=== PATIENT | female | born 1975 | race Two or more races ===

== ENCOUNTER 2020-11-26 17:02 | Emergency (ER) | payer MEDICAID, SELFPAY ==
--- NOTE | ~2020-11-26 | XR_ITS ---
EXAMINATION: XR CHEST CLINICAL INFORMATION: Wheezing COMPARISON: None TECHNIQUE: 2 views of the chest were obtained. FINDINGS: Cardiac silhouette is normal in size. Lungs are well aerated. There is no lobar consolidation. No pleural effusion or pneumothorax. No acute osseous abnormality. XR/XR chest 2V IMPRESSION: No acute pulmonary pathology.
[2020-11-26 17:16] VITALS: BP 149/93; PULSE 103; RESP 22; TEMP 37.1; O2SAT 95; BMI 44.2
--- NOTE | 2020-11-26 18:34 | ED.ASTHMA ---
HPI - Asthma General Chief Complaint: Asthma Stated Complaint: COUGH X 3 DAYS,-FEVER Time Seen by Provider: 11/26/20 18:06 Source: patient Mode of arrival: ambulatory Limitations: no limitations History of Present Illness HPI Narrative: Patient is a 45-year-old female the past medical history of asthma who presents with 3 days of shortness of breath. She states she has tried her albuterol inhaler several times with no relief. She states she then tried her sister's albuterol nebulizer machine twice today with no relief. She states she has wheezing, cough and no her head hurts. She denies any fevers nausea vomiting or chest pain. She denies seasonal allergies and does not take an allergy pill daily Related Data Previous Rx's Medication Instructions Recorded ipratropium-albuterol 3 ml INHALATION Q6-8H PRN #15 ml 11/26/20 prednisone 50 mg PO DAILY #4 tab 11/26/20 Allergies Allergy/AdvReac Type Severity Reaction Status Date / Time No Known Allergies Allergy Unverified 03/27/20 16:54 Review of Systems Review of Systems: Yes all other systems are reviewed and are negative [facility] Social History Social History Smoking Status: Current every day smoker Smoked in Last 30 Days: Yes Use of substances other than those prescribed or required for medical reasons: No Advance Directives: No Advance Directives Information Provided: Yes Patient : No Physical Exam Vital Signs: Vital Signs: Last Vital Signs Temp 98.9 F 11/26/20 20:42 Pulse 133 H 11/26/20 20:42 Resp 16 11/26/20 20:42 BP 146/68 H 11/26/20 20:42 Pulse Ox 97 11/26/20 20:42 Body Mass Index 44.2 Const: General: cooperative, healthy appearing, comfortable, no acute distress and well developed Orientation/consciousness: patient oriented x3 Limitations: no limitations HENMT: Head: Yes normal to inspection Eyes: General: appearance normal, both eyes and all related structures Neck: Neck: Yes normal visual inspection and Yes full ROM Resp: Effort & Inspection: normal respiratory effort and able to speak in complete sentences Auscultation: wheezes expiratory wheezes and throughout Cardio: Rate: tachycardic Rhythm: regular rhythm Heart sounds: normal S1 and S2 GI: Inspection: Yes normal to inspection Palpation (GI): Soft to palpation and nontender Skin: General skin exam: no rashes or lesions noted Neuro: General: patient oriented x3 Extrem: General: Yes normal to inspection Psych: Appearance: grossly normal and well kempt Speech and movement: Normal speech and movement present Affect: normal affect Attitude: cooperative Thought process: Normal thought process present Thought content: Suicidality present, no homicidality, no hallucinations and Depressive thoughts present Insight: Good insight present (Psych) Judgement: Good judgement present (Psych) Course Course Course Narrative: Patient is a 45-year-old female with a past medical history of asthma who presents with shortness of breath cough headache and wheezing x3 days, no relief after using albuterol inhaler and albuterol nebulizer. Vital signs revealed patient is hypertensive at 149/93, slightly tachycardic at 103, respirations are 22, O2 sat is 95% on room air and her temp is 98.8 degrees F. Patient is very well-appearing, physical exam reveals expiratory wheezes throughout. Will give DuoNeb, p.o. prednisone, get chest x-ray to rule out pneumonia and reassess Reevaluation(s) Reevaluation #1: Chest x-ray showed no acute pathology. Patient did receive DuoNeb/an extra albuterol nebulized. Patient states she is feeling better but ? febrile and is still tachycardic. will get vitals. Time: 20:29 Reevaluation #2: Raoul, the respiratory therapist agrees, patient is stable and can go home, patient heart rate likely increased due to prednisone we gave. Patient is well-appearing, afebrile, breathing easily, less wheezing upon auscultation. Will discharge with 4 days of prednisone and more albuterol for her nebulizer machine. Time: 20:53 MDM - Asthma Lab Data Attestation: I reviewed the patient's lab results. Labs: Lab Results 11/26/20 Range/Units 19:22 COVID-19 (ELAINE) Negative (Negative) COVID-19 Clin Com See Note Imaging Data Chest x-ray: Attestation: I personally reviewed and interpreted this imaging study as follows: My impression: No acute pathology Radiologist's impression: [address] [id number] ReportSigned Patient: Kyleigh Madrid#: [id number]: 1975Acct:[id number]/Sex: 45 / FADM Date: 11/26/20Loc: EDAttending Dr: Ordering Physician: Gail Gleason PA-C Date of Service: 11/26/20 Procedure(s): XR chest 2V Accession Number(s): [id number] cc: Gail Gleason PA-C~ EXAMINATION: XR CHEST CLINICAL INFORMATION: Wheezing COMPARISON: None TECHNIQUE: 2 views of the chest were obtained. FINDINGS: Cardiac silhouette is normal in size. Lungs are well aerated. There is no lobar consolidation. No pleural effusion or pneumothorax. No acute osseous abnormality. XR/XR chest 2V IMPRESSION: No acute pulmonary pathology. Dictated By:REFUGIO WADE MDSigned By:<Electronically signed by REFUGIO WADE MD in OV>11/26/201952 DD/ 24TD/TT: Jail Manager: PD Discharge Plan Discharge Clinical Impression: Asthma with acute exacerbation Qualifiers: Asthma severity: mild Asthma persistence: unspecified Qualified Code(s): J45.901 - Unspecified asthma with (acute) exacerbation Patient Disposition: Home, Self-Care Instructions: Asthma (ED) Additional Instructions: If you develop shortness of breath, chest pain, please call 911 or return to the emergency department. I have sent prescriptions for a steroid every day for the next 4 days and a DuoNeb which you can put in the nebulizer machine when you are wheezing, if to every 6-8 hours as needed. Please be sure to follow-up with your primary care doctor is you may need an adjustment in your asthma medications. Prescriptions: New prednisone 50 mg tablet 50 mg PO DAILY Qty: 4 RF: 0 ipratropium-albuterol 0.5 mg-3 mg(2.5 mg base)/3 mL solution for nebulization 3 ml inhalation Q6-8H PRN (Reason: shortness of breath or wheezing) Qty: 15 RF: 0
[2020-11-26] MEDS: Albuterol/Iprat 2.5/0.5MG 3 ML AMPUL.NEB INHALE (18:37)
[2020-11-26 18:38] VITALS: PULSE 109; O2SAT 93
[2020-11-26] MEDS: Albuterol Sulfate (0.083%) 2.5 MG/3 ML VIAL.NEB 5 MG INHALE (18:57)
[2020-11-26] MEDS: predniSONE 10 MG TABLET 50 MG PO (19:26)
[2020-11-26 19:44] LABS: COVID-19 Test Negative (Negative)
[2020-11-26 20:42] VITALS: BP 146/68; PULSE 133; RESP 16; TEMP 37.2; O2SAT 97
--- NOTE | 2020-11-26 20:59 | PC.NURSE ---
PT SINUS TACH ON MONITOR SINCE ADMIN OF NEB TX. HR LOWERED TO 120S AFTER PT INSTRUCTED TO AVOID TALKING ON THE PHONE IN AN AGITATED WAY. EDUCATED ON TACHYCARDIA STEROID S/E.
== END 2020-11-26 21:32 | disposition home or self-care (01) ==
PROVIDERS: Physician Assistant; Emergency Provider Emergency Medicine
DX: J45.901 Unspecified asthma with (acute) exacerbation (principal); R50.9 Fever, unspecified; R05 Cough; F17.200 Nicotine dependence, unspecified, uncomplicated; Z20.822 Contact with and (suspected) exposure to COVID-19; Z71.6 Tobacco abuse counseling; Z79.899 Other long term (current) drug therapy
CPT/HCPCS: 36415; 71046; 87635; 94640; 94644; 99284

== ENCOUNTER 2021-02-25 10:39 | Observation (INO) | payer MEDICAID, SELFPAY ==
[2021-02-25] VITALS (9 sets, daily range): BP systolic 131–168; BP diastolic 71–89; PULSE 94–116; RESP 16–22; TEMP 36.6–36.8; O2SAT 92–99; BMI 38.9
--- NOTE | ~2021-02-25 | XR_ITS ---
EXAMINATION: XR CHEST CLINICAL INFORMATION: Cough. COMPARISON: Chest radiograph dated 11/26/2020. TECHNIQUE: Frontal view of the chest was obtained. FINDINGS: The lungs are clear. The cardiomediastinal silhouette is normal in size. There is no pleural effusion or pneumothorax. No acute osseous abnormality. XR/XR chest 1V IMPRESSION: No acute cardiopulmonary findings.
--- NOTE | 2021-02-25 11:12 | ED_ITS ---
HPI - Asthma General Chief Complaint: Asthma Stated Complaint: asthma Time Seen by Provider: 02/25/21 11:12 Source: patient Mode of arrival: ambulatory Limitations: no limitations History of Present Illness MD complaint: asthma attack , shortness of breath and wheezing Onset (ago): day(s) (3) Severity: moderate and similar to prior Context: other (painted in her house) Associated symptoms: dry cough Asthma History: childhood onset Treatments Prior to Arrival: other (went to [facility] given oral prednisone sent to the ED for updraft patient has INH only at home) Related Data Previous Rx's Medication Instructions Recorded albuterol sulfate 90 mcg/actuation 2 puff INHALATION Q4-6H PRN #8.5 g 11/26/20 aerosol inhaler ipratropium 0.5 mg-albuterol 3 mg 3 ml INHALATION Q6-8H PRN #15 ml 11/26/20 (2.5 mg base)/3 mL nebulization soln prednisone 50 mg tablet 50 mg PO DAILY #4 tab 11/26/20 Allergies Allergy/AdvReac Type Severity Reaction Status Date / Time No Known Allergies Allergy Unverified 03/27/20 16:54 Review of Systems Review of Systems: Constitutional : No Fever, No Chills ENT/Mouth : No Hoarseness, No sore throat, No Rhinorrhea Eyes: No Redness, No Discharge, No Vision Changes Cardiovascular : No Chest Pain, positive SOB, positive Dyspnea on Exertion, No Edema Respiratory : positive Cough, No Sputum, positive Wheezing, Gastrointestinal : No Nausea, No Vomiting, No Diarrhea, No abdominal Pain Genitourinary : No Dysuria, No Hematuria Musculoskeletal : No joint pain, No Myalgias Skin : No rash Neuro : No Weakness, No Numbness, No Headache Psych : No anxiety, depression Heme/Lymph: No Bruising, No Bleeding Endocrine : No Polyuria, No Polydipsia All other systems reviewed and are negative [facility] Past Medical History Attestation statement: The following information was validated with the patient. Medical History Asthma Surgical History H/O shoulder surgery Social History Social History Alcohol intake: current Alcohol intake frequency: holidays/special occasions only Patient Tobacco Use Status: Current everyday Tobacco user Use of substances other than those prescribed or required for medical reasons: No Advance Directives: Yes Advance Directives Information Provided: Yes Advance Directives on File: No Patient : No Physical Exam Vital Signs: Vital Signs: Last Vital Signs Temp 98.3 F 02/25/21 10:57 Pulse 116 H 02/25/21 13:25 Resp 20 02/25/21 13:02 BP 167/84 H 02/25/21 13:02 Pulse Ox 94 02/25/21 13:02 Body Mass Index 38.9 Appearance: Alert. Oriented X3. No acute distress. Eyes: Pupils equal, round and reactive to light. ENT: Pharynx normal. Neck: Normal inspection. Neck supple. CVS: Normal heart rate and rhythm. Pulses normal. Respiratory: No respiratory distress. Breath sounds diffuse end exp wheezes coarse in nature Abdomen: Soft and non-tender. Skin: Skin warm and dry. Normal skin color. Normal skin turgor. Extremities: No lower extremity edema. No calf ttp Neuro: Oriented X 3. No motor deficit. No sensory deficit. Course Course Course Narrative: repeat neb ordered, still tachy and O2 sat 92% on RA, will repeat 5mg neb, IV magnesium, I cannot see a COVID swab - will order one now, states she took 60mg prednisone [employer] so I am holding off IV steroids at this time no sig improvement 92% on RA has no neb at home, RR 28 will admit for asthma MDM - Asthma MDM Narrative Medical decision making narrative: 45 yo female with hx of asthma, had negative COVID given oral prednisone [employer] by [facility] sent over for nebulization, she is coarse at this time as well - CXR ordered. dispo per results and improvement Lab Data Result diagrams: 02/25/21 13:16 02/25/21 13:16 Labs: Lab Results 02/25/21 02/25/21 02/25/21 Range/Units 13:16 13:16 13:16 WBC 7.8 (4.8-10.8) X10*3/uL RBC 3.87 L (4.20-5.50) X10*6/uL Hgb 11.6 L (12.0-16.0) g/dl Hct 35.0 L (37-47) % MCV 90.4 (80-98) fL MCH 30.0 (27.0-33.0) pg MCHC 33.1 (31.0-35.0) g/dl RDW 13.5 (11.0-16.0) % Plt Count 189 (160-400) X10*3/uL MPV 10.7 (9.4-12.3) fL Immature Gran % (Auto) 0.4 (0.0-0.4) % Neut % (Auto) 87.5 H (45-73) % Lymph % (Auto) 8.6 L (20-40) % [place] % (Auto) 3.2 (2-11) % Eos % (Auto) 0.0 (0-4) % Baso % (Auto) 0.3 (0-2) % Lymph # (Auto) 0.7 L (1.2-4.9) X10*3/uL [place] # (Auto) 0.3 (0.1-1.2) X10*3/uL Eos # (Auto) 0.0 (0.0-0.4) X10*3/uL Baso # (Auto) 0.0 (0.0-0.2) X10*3/uL Abs Immat Gran (auto) 0.03 (0.00-0.03) X10*3/uL Absolute Neuts (auto) 6.8 (2.0-8.3) X10*3/uL Absolute Nucleated RBC 0.000 (0.0-0.012) X10*3/uL Nucleated RBC % (auto) 0.0 (0.0-0.2) /100WBC Sodium 140 (135-145) mmol/L Potassium 3.4 (3.3-5.1) mmol/L Chloride 106 (96-108) mmol/L Carbon Dioxide 20 L (22-29) mmol/L Anion Gap 17 (12-20) BUN 8 L (9-16) mg/dL Creatinine 0.75 (0.5-1.4) mg/dL Estim Creat Clear Calc 108.9 Estimated GFR > 60 Random Glucose 149 H (60-115) mg/dL Calcium 8.9 (8.4-10.2) mg/dL COVID-19 (ELAINE) Negative (Negative) COVID-19 Clin Com See Note Critical Care Time Critical Care Time Critical Care Time: Yes Total Critical Care Time: 35 Attestation: repeat assessments, required hour long neb I attest to this time spent taking care of the patient Discharge Plan Discharge Clinical Impression: Asthma with acute exacerbation Qualifiers: Asthma severity: moderate Asthma persistence: persistent Qualified Code(s): J45.41 - Moderate persistent asthma with (acute) exacerbation Patient Disposition: Admitted As Inpatient Prescriptions: No Action prednisone 50 mg tablet 50 mg PO DAILY Qty: 4 RF: 0 ipratropium-albuterol 0.5 mg-3 mg(2.5 mg base)/3 mL solution for nebulization 3 ml inhalation Q6-8H PRN (Reason: shortness of breath or wheezing) Qty: 15 RF: 0 albuterol sulfate 90 mcg/actuation HFA aerosol inhaler 2 puff inhalation Q4-6H PRN (Reason: shortness of breath or wheezing) Qty: 8.5 RF: 0
[2021-02-25] MEDS: Albuterol Sulfate (0.083%) 2.5 MG/3 ML VIAL.NEB 5 MG INHALE ×2 (11:27→13:22)
--- NOTE | 2021-02-25 11:34 | PC.NURSE ---
pt alert and oriented, skin appropriate for ethnicity, respirations even and unlabored, ls expiratory wheezing through out all villatoro, sating at 92% on room air.
--- NOTE | 2021-02-25 13:05 | PC.NURSE ---
no improvement after the breathing tx, still wheezing through out, sinus tach on the monitor
[2021-02-25] MEDS: Magnesium Sulfate/H2O 2 GM/50 ML PIGGYBACK IV (13:17)
[2021-02-25] MEDS: 0.9 % Sodium Chloride 1,000 ML 999 ML IV (13:17)
[2021-02-25 13:29] LABS: MANUAL DIFF FLAG NO
[2021-02-25 13:35] LABS: Basophils Percent Auto 0.3 % (0-2); Hemoglobin 11.6 g/dl (12.0-16.0); Imm Gran Abs Auto 0.03 X10*3/uL (0.00-0.03); Imm Gran Pct Auto 0.4 % (0.0-0.4); Lymphocytes Absolute Auto 0.7 X10*3/uL (1.2-4.9); Lymphocytes Percent Auto 8.6 % (20-40); Mean Corpuscular HGB Conc 33.1 g/dl (31.0-35.0); Mean Corpuscular Volume 90.4 fL (80-98); Mean Platelet Volume 10.7 fL (9.4-12.3); Monocytes Absolute Auto 0.3 X10*3/uL (0.1-1.2); Monocytes Percent Auto 3.2 % (2-11); Neutrophils Absolute Auto 6.8 X10*3/uL (2.0-8.3); Neutrophils Percent Auto 87.5 % (45-73); Platelet Count 189 X10*3/uL (160-400); Red Blood Count 3.87 X10*6/uL (4.20-5.50); Red Cell Distribution Width 13.5 % (11.0-16.0); White Blood Count 7.8 X10*3/uL (4.8-10.8)
[2021-02-25 13:49] LABS: COVID-19 Test Negative (Negative)
[2021-02-25 13:59] LABS: Anion Gap 17 (12-20); Blood Urea Nitrogen 8 mg/dL (9-16); Calcium 8.9 mg/dL (8.4-10.2); Carbon Dioxide 20 mmol/L (22-29); Chloride 106 mmol/L (96-108); Creatinine Clr Calc Pharmacy 108.9; Estimated Glomerular Filt Rate > 60; Glucose Random 149 mg/dL (60-115); Potassium 3.4 mmol/L (3.3-5.1); Sodium 140 mmol/L (135-145)
--- NOTE | 2021-02-25 15:02 | PHA.MEDREC ---
MED REC COMPLETE, NO ISSUES. Patient was started on metronidazole on 02/24/21 ordered for 7 daysPharmacy Consult ? Medication Reconciliation Pharmacy has completed the medication reconciliation.
--- NOTE | 2021-02-25 17:19 | P.HPHOSP_ITS ---
History of Present Illness Date of Service: 02/25/21 45-year-old female with history of asthma exacerbation who came to the hospital because of shortness of breath for 2-3 days duration-she went to [facility] for that . A shortness of breath did not improve then came to the emergency room subsequently gives nebs and steroids-patient shortness of breath such somewhat better but she still tachycardic and having difficulty speaking, has been speaking in small sentences. ED physician given admission for asthma exacerbation. Patient still short of breath and has nonproductive cough. Past medical history: Asthma. Past surgical history: Shows left shoulder surgery. Allergy: NKDA Social history: She smokes 1/2 pack a day for 20 years. Denies any EtOH or recreation drug use Review of Systems Review of Systems: In addition to H&P. Patient denies any chest pain or abdominal pain or nausea or vomiting or fever chills or sick contacts. Denies any skin rash or weakness or numbness. [facility] Medical History Asthma Surgical History H/O shoulder surgery Social History Alcohol intake: current Alcohol intake frequency: holidays/special occasions only Patient Tobacco Use Status: Current everyday Tobacco user Use of substances other than those prescribed or required for medical reasons: No Advance Directives: Yes Advance Directives Information Provided: Yes Advance Directives on File: No Patient : No Meds Allergies Allergy/AdvReac Type Severity Reaction Status Date / Time No Known Allergies Allergy Unverified 03/27/20 16:54 Active Medications: Current Medications Generic Name Dose Route Start Last Admin Trade Name Freq PRN Reason Stop Dose Admin Albuterol/Ipratropium 3 ml 02/25/21 17:15 Albuterol/Iprat 2.5/0.5mg 3 Ml Ampul.Neb INHALE Q4H TAYE Albuterol/Ipratropium 3 ml 02/25/21 17:15 Albuterol/Iprat 2.5/0.5mg 3 Ml Ampul.Neb INHALE Q3H PRN Shortness of Breath Methylprednisolone Sodium Succinate 40 mg 02/25/21 21:00 Methylprednisolone Sod Succ 40 Mg/Ml Vial IVPUSH BID [facility] Pharmacy Consult 1 each 02/25/21 14:32 Consult Rx Perform Med Rec MISCELLANE ONCE PRN Consult order Sodium Chloride 3 ml 02/26/21 00:00 0.9 % Sodium Chloride Flush 3 Ml Syringe IVFLUSH QSHIFT [facility] Home Medications Medication Instructions Recorded Confirmed Last Taken Type fluticasone propionate 110 2 puff INHALATION BID 02/25/21 02/25/21 Unknown History mcg/actuation HFA aerosol inhaler (Flovent HFA) metronidazole 500 mg tablet 500 mg PO Q12H 02/25/21 02/25/21 Unknown History Physical Exam Vital Signs and Narrative: Vital Signs: Last Vital Signs Temp 97.9 F 02/25/21 16:00 Pulse 109 H 02/25/21 16:00 Resp 16 02/25/21 16:00 BP 134/77 02/25/21 16:00 Pulse Ox 99 02/25/21 16:00 Body Mass Index 38.9 General: Patient appears somewhat short of breath, and speaking in short sentences Eyes: Pupils equal, round and reactive to light.? Neck:? Neck supple.? CVS: rrr,s1s2 heard.? Pulses normal.? Respiratory: No respiratory distress.? Breath sounds diffuse end exp wheezes . Abdomen: Soft and non-tender, nd, bs present. Skin: Skin warm and dry.? Normal skin color.? Normal skin turgor.? Extremities: No lower extremity edema.? Neuro: Oriented X 3.? No motor deficit.? No sensory deficit. Results Labs CBC and Chem 7: 02/25/21 13:16 02/25/21 13:16 Labs: Laboratory Results - last 24 hr 02/25/21 02/25/21 02/25/21 13:16 13:16 13:16 MCV 90.4 MCH 30.0 MCHC 33.1 RDW 13.5 Plt Count 189 MPV 10.7 Immature Gran % (Auto) 0.4 Neut % (Auto) 87.5 H Lymph % (Auto) 8.[address] [place] % (Auto) 3.2 Eos % (Auto) 0.0 Baso % (Auto) 0.3 Lymph # (Auto) 0.[address] [place] # (Auto) 0.3 Eos # (Auto) 0.0 Baso # (Auto) 0.0 Abs Immat Gran (auto) 0.03 Absolute Neuts (auto) 6.8 Absolute Nucleated RBC 0.000 Nucleated RBC % (auto) 0.0 Anion Gap 17 Estim Creat Clear Calc 108.9 Estimated GFR > 60 Random Glucose 149 H Calcium 8.9 COVID-19 (ELAINE) Negative COVID-19 Clin Com See Note Imaging Radiologist's Impressions: Impressions Chest X-Ray 02/25/21 11:17 IMPRESSION: No acute cardiopulmonary findings. Assessment and Plan (1) Asthma with acute exacerbation: Qualifiers: Asthma persistence: persistent Asthma severity: moderate Qualified Code(s): J45.41 - Moderate persistent asthma with (acute) exacerbation Status: Acute 1. Asthma exacerbation Admit patient for observation Continue nebs, steroids 2. Smoker: Added nicotine patch DVT prophylaxis with Lovenox. Patient management discussed with patient she is agreement with the plan, patient is full code. Quality Stroke Does the patient have a stroke diagnosis?: No VTE Prior VTE?: No VTE Risk Level:: Medical - moderate - high VTE Device Contraindication: N/A - Device Ordered VTE Drug Contraindication: N/A - Med Ordered
[2021-02-25] MEDS: Nicotine 14 MG PATCH.TD24 TRANSDERMA (18:25)
[2021-02-25] MEDS: methylPREDNISolone Sod Succ 40 MG/ML VIAL IVPUSH (21:12)
[2021-02-25] MEDS: Albuterol/Iprat 2.5/0.5MG 3 ML AMPUL.NEB INHALE (22:00)
--- NOTE | 2021-02-25 23:07 | PC.NURSE ---
nurse to nurse report given to Emilia QUINTANA
[2021-02-25] MEDS: 0.9 % Sodium Chloride Flush 3 ML SYRINGE IVFLUSH (23:48)
[2021-02-26] VITALS: BP 150/64; PULSE 80; RESP 18; TEMP 37; O2SAT 92
[2021-02-26] MEDS: Acetaminophen 325 MG TABLET 650 MG PO ×2 (00:18→09:56)
[2021-02-26 03:10] VITALS: BP 126/82; PULSE 83; RESP 17; TEMP 36.3; O2SAT 92
[2021-02-26 06:33] LABS: Hematocrit 35.4 % (37-47); Hemoglobin 11.6 g/dl (12.0-16.0); Mean Corpuscular HGB Conc 32.8 g/dl (31.0-35.0); Mean Corpuscular Hemoglobin 29.4 pg (27.0-33.0); Mean Corpuscular Volume 89.6 fL (80-98); Mean Platelet Volume 10.8 fL (9.4-12.3); Platelet Count 204 X10*3/uL (160-400); Red Blood Count 3.95 X10*6/uL (4.20-5.50); Red Cell Distribution Width 13.3 % (11.0-16.0); White Blood Count 9.3 X10*3/uL (4.8-10.8)
[2021-02-26 07:06] LABS: Anion Gap 13 (12-20); Blood Urea Nitrogen 6 mg/dL (9-16); Calcium 9.3 mg/dL (8.4-10.2); Carbon Dioxide 25 mmol/L (22-29); Chloride 107 mmol/L (96-108); Creatinine Clr Calc Pharmacy 127.7; Estimated Glomerular Filt Rate > 60; Glucose Random 152 mg/dL (60-115); Potassium 4.5 mmol/L (3.3-5.1); Sodium 140 mmol/L (135-145)
[2021-02-26] MEDS: Albuterol/Iprat 2.5/0.5MG 3 ML AMPUL.NEB INHALE ×2 (07:45→11:03)
[2021-02-26 07:47] VITALS: PULSE 100; O2SAT 90
[2021-02-26 08:00] VITALS: BP 175/86; PULSE 101; RESP 16; TEMP 37; O2SAT 93
[2021-02-26] MEDS: Nicotine 14 MG PATCH.TD24 TRANSDERMA (09:06)
[2021-02-26] MEDS: Enoxaparin Sodium 40 MG/0.4 ML SYRINGE SUBCUT (09:07)
[2021-02-26] MEDS: methylPREDNISolone Sod Succ 40 MG/ML VIAL IVPUSH (09:08)
[2021-02-26] MEDS: 0.9 % Sodium Chloride Flush 3 ML SYRINGE IVFLUSH (09:10)
[2021-02-26 11:05] VITALS: PULSE 101; O2SAT 95
[2021-02-26 11:36] VITALS: BP 149/74; PULSE 109; RESP 16; TEMP 37.1; O2SAT 94
--- NOTE | 2021-02-26 12:37 | MHC.CM.PN ---
Addendum entered by Aga Bai 02/26/21 13:16: PT CLEARED TO DC HOME TODAY WITH NO SERVICES Original Note: CM MET WITH PT WHO REPORTS SHE LIVES AT HOME WITH HER TEENAGE CHILDREN. PT IS FULLY INDEPENDENT WITH ALL CARE AND MOBILITY. PT HAS NO SERVICES AND NO DME ALTHOUGH SHE REPORTS SHE FEELS SHE NEEDS A NEBULIZER. CM EXPLAINED THIS WOULD LIKELY NEED TO BE ORDERED BY HER PCP. PT DOES NOT HAVE A HCP, CM PROVIDED INFORMATION HOWEVER PT DECLINED TO COMPLETE ONE TODAY. PT CONFIRMS HER PCP IS LAZ WILLS. CURRENT DC PLAN IS HOME WITH NO SERVICES VIA SELF ARRANGED TRANSPORT
--- NOTE | 2021-02-26 13:18 | MHC.CM.PN ---
PATIENT IS DISCHARGED HOME - SELF CARE SHE WILL HAVE A NEW RX FOR INHALER
--- NOTE | 2021-02-26 13:53 | PM.DS ---
DS: Providers Provider Date of Service: 02/26/21 Date of admission: 02/25/21 17:15 Primary care physician: Liam Yu MD DS: Diagnosis Discharge Diagnosis (1) Asthma with acute exacerbation: Status: Acute DS: Medications Discharge Medications Home Medications: Home Medications Medication Instructions Recorded Confirmed fluticasone propionate 110 2 puff INHALATION BID 02/25/21 02/25/21 mcg/actuation HFA aerosol inhaler (Flovent HFA) Previous Rx's Medication Instructions Recorded albuterol sulfate 90 mcg/actuation 2 puff INHALATION Q4-6H PRN #8.5 g 11/26/20 aerosol inhaler ipratropium 0.5 mg-albuterol 3 mg 3 ml INHALATION Q6H #100 ml 02/26/21 (2.5 mg base)/3 mL nebulization soln nebulizers #1 ea 02/26/21 prednisone 20 mg tablet 20 mg PO DAILY #5 tab 02/26/21 DS: Summary Hospital Course Hospital Course: History of presenting illness Date of Service: 02/25/21 45-year-old female with history of asthma exacerbation who came to the hospital because of shortness of breath for 2-3 days duration-she went to [facility] for that . A shortness of breath did not improve then came to the emergency room subsequently gives nebs and steroids-patient shortness of breath such somewhat better but she still tachycardic and having difficulty speaking, has been speaking in small sentences. ED physician given admission for asthma exacerbation. Patient still short of breath and has nonproductive cough. Past medical history:? Asthma. Past surgical history:? Shows left shoulder surgery. Allergy:? NKDA Social history:? She smokes 1/2 pack a day for 20 years. Denies any EtOH or recreation drug use Hospital course Patient admitted with a diagnosis of acute asthma exacerbation, chest x-ray showed no acute abnormality, patient treated with IV steroids updraft treatment her symptoms improved significantly this morning her oxygenation is 92% on room air, patient is being discharged home on steroids 20 mg daily for 5 days she has been placed on nicotine patch with strong recommendation to abstain from smoking she is recommended to continue steroid inhaler twice daily and to use DuoNeb updraft 4 times a day for few days and then as needed nebulizer machine has been dispensed. Time Spent with Patient Time attestation: Total time spent providing and/or coordinating discharge services: Discharge coordination time: Greater than 30 minutes Quality: Stroke Does the patient have a stroke diagnosis?: No Physical Exam Vital Signs: Vital Signs: Last Vital Signs Temp 98.7 F 02/26/21 11:36 Pulse 109 H 02/26/21 11:36 Resp 16 02/26/21 11:36 BP 149/74 H 02/26/21 11:36 Pulse Ox 94 02/26/21 11:36 Body Mass Index 38.9 General no acute distress, talking in full sentences Neck supple no JVD. CVS regular rate rhythm, Respiratory lungs clear to auscultation, coarse breath sound, no respiratory distress, no wheeze, no rhonchi. Gastrointestinal abdomen soft, nontender, bowel sounds audible Extremities no edema. Neuro nonfocal Skin no rash DS: Data Data Completed and Pending Labs on day of discharge: Laboratory Results - last 24 hr 02/25/21 02/26/21 02/26/21 13:16 06:06 06:06 WBC 9.3 RBC 3.95 L Hgb 11.6 L Hct 35.4 L MCV 89.6 MCH 29.4 MCHC 32.8 RDW 13.3 Plt Count 204 MPV 10.8 Absolute Nucleated RBC 0.000 Nucleated RBC % (auto) 0.0 Sodium 140 140 Potassium 3.4 4.5 D Chloride 106 107 Carbon Dioxide 20 L 25 Anion Gap 17 13 BUN 8 L 6 L Creatinine 0.75 0.64 Estim Creat Clear Calc 108.9 127.7 Estimated GFR > 60 > 60 Random Glucose 149 H 152 H Calcium 8.9 9.3 Discharge Plan Discharge Patient Disposition: Home, Self-Care Discharge Diagnosis: Acute asthma exacerbation Tobacco use disorder Referrals: Liam Xie MD [Primary Care Provider] - 1 Week Discharge Medications: New prednisone 20 mg tablet 20 mg PO DAILY Qty: 5 RF: 0 ipratropium-albuterol 0.5 mg-3 mg(2.5 mg base)/3 mL Solution For Nebulization 3 ml inhalation Q6H Qty: 100 RF: 0 (DME) nebulizers Misc See Rx Instructions .Route Qty: 1 RF: 0 Continued albuterol sulfate 90 mcg/actuation HFA aerosol inhaler 2 puff inhalation Q4-6H PRN (Reason: shortness of breath or wheezing) Qty: 8.5 RF: 0 Flovent HFA 110 mcg/actuation Hfa Aerosol Inhaler 2 puff INHALATION BID RF: 0 Discontinued metronidazole 500 mg Tablet 500 mg PO Q12H RF: 0 Discharge Orders: Discharge Order (Routine); Ordered 02/26/21 Ordered By: Mamie Sullivan Diet: advance to usual diet Activity on Discharge: As tolerated Stand Alone Forms: Patient Portal Discharge page Care Plan Goals: TAKE PREDNISONE FOR 5 MORE DAYS AND USE FLOVENT TWICE DAILY AND NEBULIZER TREATMENT 4 TIMES A DAY FOR 3 DAYS AND THEN NEEDED Health Concerns: ASTHMA/TOBACCO USE Plan of Treatment: FOLLOW-UP WITH PRIMARY CARE PHYSICIAN IN 1 WEEK Assessment: ABOVE
--- NOTE | 2021-02-26 15:55 | PC.NURSE ---
[id number] discharged home. [facility] will deliver nebulizer Pt has phone number.
== END 2021-02-26 15:55 | disposition home or self-care (01) ==
LOC: HO.ED 14:33 → HO.EDOVER 17:27 → HO.S3 22:34
PROVIDERS: Admitting Provider Internal Medicine; Emergency Provider Emergency Medicine; PCP Internal Medicine; Visit Provider Hospitalist
DX: J45.41 Moderate persistent asthma with (acute) exacerbation (principal); J45.901 Unspecified asthma with (acute) exacerbation; F17.210 Nicotine dependence, cigarettes, uncomplicated; Z20.822 Contact with and (suspected) exposure to COVID-19; Z79.52 Long term (current) use of systemic steroids; Z79.51 Long term (current) use of inhaled steroids; Z53.29 Procedure and treatment not carried out because of patient's decision for other reasons
CPT/HCPCS: 36415; 71045; 80048; 85025; 85027; 87635; 94640; 96365; 96366; 96372; 96375; 99218; 99285; 99291; J1650; J2920; J3475

== ENCOUNTER 2021-03-12 14:52 | Outpatient (REF) | payer MEDICAID, SELFPAY ==
--- NOTE | 2021-03-12 | PFT_ITS ---
Forced vital capacity and FEV1 are both moderately decreased. CZB28-49 is normal. MVV slightly decreased. Post bronchodilator therapy, there is a slight improvement in SVL87-22 and MVV. Total lung capacity slightly decreased. Residual volume is normal. Diffusion capacity normal. CONCLUSION: A very mild degree of restrictive pulmonary disorder. No significant obstructive airway disorder. There is a minimal response to bronchodilator therapy. Clinical correlation recommended. MD TYRON Faust/DIYA / [id number]
== END 2021-03-12 14:53 | disposition home or self-care (01) ==
LOC: HO.RESP 14:52
PROVIDERS: PCP Internal Medicine; Visit Provider Internal Medicine
DX: R06.02 Shortness of breath (principal)
CPT/HCPCS: 94060; 94727; 94729

== ENCOUNTER 2021-07-07 00:38 | Emergency (ER) | payer MEDICAID, SELFPAY ==
[2021-07-07 00:47] VITALS: BP 191/89; PULSE 100; RESP 18; TEMP 36.1; O2SAT 99; BMI 38.9
== END 2021-07-07 05:48 | disposition left against medical advice (07) ==
PROVIDERS: Emergency Provider Emergency Medicine; PCP Internal Medicine
DX: R09.02 Hypoxemia (principal)
CPT/HCPCS: 99281; 99282

== ENCOUNTER 2022-04-29 | Outpatient (REF) | payer MEDICAID, SELFPAY ==
--- NOTE | 2022-04-29 08:30 | EMG_ITS ---
Right median and ulnar motor and sensory studies were performed. Right radial and sensory study was performed. Needle examination was performed. IMPRESSION: Mild right ulnar neuropathy across cubital tunnel. Median study was within normal range. MD MARLENA Baez/DIYA / [id number]
== END 2022-04-29 00:01 | disposition home or self-care (01) ==
LOC: HO.NEURO
PROVIDERS: PCP Internal Medicine; Visit Provider Internal Medicine
DX: G56.01 Carpal tunnel syndrome, right upper limb (principal)
CPT/HCPCS: 95886; 95909

== ENCOUNTER 2023-01-24 13:09 | Outpatient (REF) | payer MEDICAID, SELFPAY ==
--- NOTE | ~2023-01-24 | MM_ITS ---
EXAMINATION: MM SCREENING DIGITAL BREAST TOMOSYNTHESIS, BILATERAL CLINICAL INFORMATION: Screening. Asymptomatic. The lifetime risk of breast cancer based on the Tyrer-Cuzick Model is 10.2%. COMPARISON: Mammography: This study is compared with prior exams dating back to 2020. TECHNIQUE: Digital breast tomosynthesis is performed in both the craniocaudal and mediolateral oblique views along with computer-aided detection (CAD). Synthesized 2D images are generated from the tomosynthesis. FINDINGS: There are scattered areas of fibroglandular density (ACR BI-RADS breast composition Category b). There are no significant masses, abnormal calcifications, or other abnormalities. MM/MM tomosynthesis screening BI IMPRESSION: No mammographic evidence of malignancy. ASSESSMENT: BI-RADS BI-RADS 1 - Negative RECOMMENDATION: Routine annual mammography screening. 1 year F/U This examination should not preclude the clinical evaluation of a suspicious palpable abnormality. This patient's information was entered into a reminder system with a target due date for their next mammogram.
== END 2023-01-24 13:10 | disposition home or self-care (01) ==
LOC: HO.MAMMO 13:09
PROVIDERS: PCP Internal Medicine; Visit Provider Internal Medicine
DX: Z12.31 Encounter for screening mammogram for malignant neoplasm of breast (principal)
CPT/HCPCS: 77063; 77067

== ENCOUNTER → 2023-01-24 13:15 | Outpatient (BNV) | payer MEDICAID, SELFPAY | PROVIDERS: PCP Internal Medicine; Visit Provider Radiology Diagnostic Radiology | DX: Z12.31 Encounter for screening mammogram for malignant neoplasm of breast (principal) | CPT/HCPCS: 77063; 77067 ==

== ENCOUNTER 2023-02-16 09:29 | Outpatient (REF) | payer MEDICAID, SELFPAY ==
[2023-02-16 14:27] LABS: MANUAL DIFF FLAG NO
[2023-02-16 14:32] LABS: Basophils Percent Auto 0.5 % (0-2); Hematocrit 38.6 % (37.0-47.0); Hemoglobin 12.8 g/dl (12.0-16.0); Imm Gran Abs Auto 0.02 X10*3/uL (0.00-0.03); Imm Gran Pct Auto 0.4 % (0.0-0.4); Lymphocytes Absolute Auto 2.2 X10*3/uL (1.2-4.9); Lymphocytes Percent Auto 39.9 % (20-40); Mean Corpuscular HGB Conc 33.2 g/dl (31.0-35.0); Mean Corpuscular Hemoglobin 29.3 pg (27.0-33.0); Mean Corpuscular Volume 88.3 fL (80.0-98.0); Mean Platelet Volume 11.4 fL (9.4-12.3); Monocytes Absolute Auto 0.4 X10*3/uL (0.1-1.2); Monocytes Percent Auto 7.4 % (2-11); Neutrophils Absolute Auto 2.9 x10*3/uL (2.0-8.3); Neutrophils Percent Auto 51.8 % (45-73); Platelet Count 181 X10*3/uL (160-400); Red Blood Count 4.37 X10*6/uL (4.20-5.50); Red Cell Distribution Width 12.8 % (11.0-16.0); White Blood Count 5.6 X10*3/uL (4.8-10.8)
[2023-02-16 14:48] LABS: Estimated Average Glucose 100 mg/dL; Hemoglobin A1c % 5.1 %
[2023-02-16 15:29] LABS: Alanine Aminotransferase 18 U/L (0-31); Albumin Level 4.1 g/dL (3.5-5.0); Alkaline Phosphatase 57 U/L (39-117); Anion Gap 14 (12-20); Aspartate Amino Transferase 15 U/L (5-31); Bilirubin Total 0.4 mg/dL (0.0-1.0); Blood Urea Nitrogen 12 mg/dL (9-16); Calcium 9.3 mg/dL (8.4-10.2); Carbon Dioxide 23 mmol/L (22-29); Chloride 108 mmol/L (96-108); Cholesterol 207 mg/dL; Estimated Glomerular Filt Rate > 60; Glucose Fasting 83 mg/dL (60-99); HDL Cholesterol 40 mg/dL; LDL Cholesterol Calculated 108 mg/dl; Potassium 3.7 mmol/L (3.3-5.1); Sodium 141 mmol/L (135-145); Total Protein 7.3 g/dL (6.5-8.0); Triglycerides 295 mg/dL
[2023-02-17 04:08] LABS: ~HepC Num1 0.14 S/CO (0.00-0.79); ~Hepatitis C Antibody Nonreactive (Nonreactive)
[2023-02-20 18:14] LABS: HIV RNA PCR Qn Copies Not Detected Copies/mL; HIV RNA PCR Qn Log Copies Not Detected Log cps/mL
== END 2023-02-16 09:30 | disposition home or self-care (01) ==
LOC: HO.CHCLDS 09:29
PROVIDERS: Visit Provider Internal Medicine
DX: Z00.00 Encounter for general adult medical examination without abnormal findings (principal); Z11.4 Encounter for screening for human immunodeficiency virus [HIV]
CPT/HCPCS: 36415; 80053; 80061; 83036; 84443; 85025; 86803; 87536; 87900

== ENCOUNTER 2023-03-16 08:11 | Outpatient (AMB) | payer MEDICAID, SELFPAY ==
--- NOTE | 2023-03-16 08:19 | MHC.OFFVIS ---
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 At the moment her right hand is worse. States her symptoms are worse at night time and mornings. States she has numbness in all of her digits in her right hand for the last 8-9 years. She has tried injections and bracing but it give temporary relief. EMG done for her right hand only. Also reports she is having pain around her CMC joint for a while. 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 This study was only performed on her right side. She complains of numbness in her bilateral hands, R>L. With further clarification, she says her whole hand is numb in the mornings, but she has intermittent numbness primarily in her small finger. She has more recently developed daily intermittent numbness in the median nerve distribution of her right hand. She also complains of numbness in her left hand which began recently. She says this is not as severe as her right hand numbness She has tried bracing & injections with temporary relief She also complains of pain near the base of her bilateral thumbs, R>L, with pain & difficulty with pinching, gripping, and twisting activities. She says this began in 05/2022 when she started a new job. 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 Review of Systems Const All systems reviewed & are unremarkable except as noted in HPI and below Physical Exam Vital Signs: BMI result Body Mass Index 36.6 Const General: cooperative, healthy appearing and no acute distress Orientation/consciousness: patient oriented x3 HEENT Head: Yes normocephalic and Yes atraumatic Eyes EOM: EOMs intact bilaterally Resp Effort & Inspection: normal respiratory effort and able to speak in complete sentences Cardio Jugular venous distension: no JVD Skin General skin exam: turgor normal Rashes: no rashes Neuro General: patient oriented x3 Extrem Other: Evaluation of Bilateral Upper Extremity: The patient is alert, oriented, and in no acute distress Neuro: Median, Ulnar, Radial nerves motor and sensory intact and sensation is normal to the tips of all digits today in clinic No thenar or intrinsic wasting Good APB muscle belly firing and good finger cross Vascular: Cap refill brisk ROM: She can make a fist and extend all her digits No locking or catching Skin: No lacerations or abrasions. General: No Ecchymosis. No Erythema or evidence of infection. Mild tenderness over the right basal joint No tenderness about the MCP joint Negative Milo test bilaterally No tenderness over the 1st dorsal compartment. Nerve Conduction Study 04/29/2022: Right median and ulnar motor and sensory studies were performed. Right radial and sensory study was performed. Needle examination was performed. IMPRESSION: Mild right ulnar neuropathy across cubital tunnel. Median study was within normal range. Reymundo Fan MD 04/29/2022 Psych Appearance: grossly normal Affect: normal affect Attitude: cooperative Assessment & Plan Assessment & Plan (1) Cubital tunnel syndrome on right: Code(s): G56.21 - Lesion of ulnar nerve, right upper limb (2) Numbness and tingling in right hand: Code(s): R20.0 - Anesthesia of skin; R20.2 - Paresthesia of skin (3) Numbness and tingling in left hand: Code(s): R20.0 - Anesthesia of skin; R20.2 - Paresthesia of skin Plan Assessment & Plan: 1. Right Cubital tunnel syndrome, mild Symptoms intermittent, but daily, worse at night 2. Right hand numbness In the median nerve distribution Symptoms intermittent, but daily, worse in the mornings 3. Left hand numbness In the median nerve distribution Symptoms intermittent and occasional, worse at night I educated her about carpal & cubital tunnel syndrome Her nerve conduction study from last year showed only right cubital tunnel syndrome. I ordered a new bilateral NCS to assess for peripheral neuropathy vs cervical radiculopathy She will follow up when completed for review 4. Right basal joint arthritis, based on history and PE She was fitted for a comfort cool braces to wear with daily activity I discussed activity modification, she should limit or avoid any heavy or repetitive pinching or gripping activities Scribed for Yue Fitch MD by Raghavendra Bentley, medical authorization specialist, on 03/16/23 at 8:55 AM, EST. Orders: Orders NE nerve conduction velocity Today R20.0 - Anesthesia of skin, R20.2 - Paresthesia of skin Coding Level of Care Code Est Pt Level 3 (20210) Diagnoses Cubital tunnel syndrome on right G56.21 Numbness and tingling in right hand R20.0; R20.2 Numbness and tingling in left hand R20.0; R20.2
[2023-03-16 08:28] VITALS: BMI 36.6
== END 2023-03-16 09:01 | disposition home or self-care (01) ==
PROVIDERS: PCP Internal Medicine; Visit Provider Orthopaedic Surgery
DX: G56.21 Lesion of ulnar nerve, right upper limb (principal); R20.0 Anesthesia of skin; R20.2 Paresthesia of skin
CPT/HCPCS: 99203

== ENCOUNTER → 2023-03-16 08:11 | Outpatient (BNVA) | payer MEDICAID, SELFPAY | PROVIDERS: PCP Internal Medicine; Visit Provider Orthopaedic Surgery ==

== ENCOUNTER 2023-04-06 14:17 | Outpatient (REF) | payer MEDICAID, SELFPAY ==
--- NOTE | 2023-04-06 14:19 | EMG_ITS ---
Chief complaint: Right arm and elbow pain Reason for referral: Evaluate for neuropathy versus radiculopathy Referred by: Dr. Fitch Procedure done: Bilateral upper extremities NCS/EMG Precautions and/or limitations: None The limb temperature was monitored continuously and remained between 32-36 degrees C during the performance of the NCS. Nerve Conduction Studies Anti Sensory Summary Table ?Stim Site NR Onset (ms) Norm Onset (ms) Peak (ms) Norm Peak (ms) O-P Amp (?V) Norm O-P Amp Site1 Site2 Delta-0 (ms) Dist (cm) Louie (m/s) Norm Louie (m/s) Left Median Anti Sensory (2nd Digit) Wrist ? 2.8 3.5 <3.6 51.4 >10 Wrist 2nd Digit 2.8 14.0 50 Right Median Anti Sensory (2nd Digit) Wrist ? 2.7 3.3 <3.6 57.0 >10 Wrist 2nd Digit 2.7 14.0 52 Right Radial Anti Sensory (Thumb) Forearm ? 1.4 1.8 <3.1 4.1 Forearm Thumb 1.4 0.0 Left Ulnar Anti Sensory (5th Digit) Wrist ? 2.6 3.1 <3.7 40.9 >15.0 Wrist 5th Digit 2.6 14.0 54 Right Ulnar Anti Sensory (5th Digit) Wrist ? 2.2 2.8 <3.7 37.1 >15.0 Wrist 5th Digit 2.2 14.0 64 Motor Summary Table ?Stim Site NR Onset (ms) Norm Onset (ms) O-P Amp (mV) Norm O-P Amp iAmp (mV) Amp (1st) (%) Site1 Site2 Delta-0 (ms) Dist (cm) Louie (m/s) Norm Louie (m/s) Left Median Motor (Abd Poll Brev) Wrist ? 3.8 <3.9 10.0 >4.5 12.2 100.0 Elbow Wrist 3.4 21.5 63 >45 Elbow ? 7.2 9.2 11.4 92.0 Right Median Motor (Abd Poll Brev) Wrist ? 3.4 <3.9 11.8 >4.5 13.6 100.0 Elbow Wrist 3.4 20.0 59 >45 Elbow ? 6.8 10.8 12.5 91.5 Left Ulnar Motor (Abd Dig Minimi) Wrist ? 2.5 <3.0 5.4 >5 6.1 100.0 B Elbow Wrist 3.0 21.0 70 >45 B Elbow ? 5.5 4.9 5.8 90.7 A Elbow B Elbow 1.5 10.0 67 >45 A Elbow ? 7.0 4.9 5.8 90.7 Right Ulnar Motor (Abd Dig Minimi) Wrist ?? 2.7 <3.0 8.5 >5 10.2 100.0 B Elbow Wrist 3.2 18.5 58 >45 B Elbow ? 5.9 8.1 9.8 95.3 A Elbow B Elbow 1.1 10.0 91 >45 A Elbow ? 7.0 8.4 10.5 98.8 EMG ?Side Muscle Nerve Root Ins Act Fibs Psw Amp Dur Poly Recrt Int Pat Comment Right 1stDorInt Ulnar C8-T1 Nml Nml Nml Nml Nml 0 Nml Complete Right FlexCarRad Median C6-7 Nml Nml Nml Nml Nml 0 Nml Complete Right Biceps Musculocut C5-6 Nml Nml Nml Nml Nml 0 Nml Complete Right Triceps Radial C6-7-8 Nml Nml Nml Nml Nml 0 Nml Complete Right Deltoid Axillary C5-6 Nml Nml Nml Nml Nml 0 Nml Complete Left 1stDorInt Ulnar C8-T1 Nml Nml Nml Nml Nml 0 Nml Complete Left FlexCarRad Median C6-7 Nml Nml Nml Nml Nml 0 Nml Complete Left Biceps Musculocut C5-6 Nml Nml Nml Nml Nml 0 Nml Complete Left Triceps Radial C6-7-8 Nml Nml Nml Nml Nml 0 Nml Complete Left Deltoid Axillary C5-6 Nml Nml Nml Nml Nml 0 Nml Complete Paraspinal EMG ?Side Muscle Nerve Root Ins Act Fibs Psw Comment Right Cervical Upper Rami Nml Nml Nml Right Cervical Mid Rami Nml Nml Nml Right Cervical Lower Rami Nml Nml Nml Left Cervical Upper Rami Nml Nml Nml Left Cervical Mid Rami Nml Nml Nml Left Cervical Lower Rami Nml Nml Nml FINDINGS: All motor and sensory nerves tested showed normal latencies, amplitudes and conduction velocities. Concentric needle EMG was performed in selected muscles of the bilateral upper extremities and cervical paraspinal. Study did not reveal signs of electric abnormalities as shown in the table below. IMPRESSION: 1. This is a normal study. 2. There is no electrodiagnostic evidence for median neuropathy, ulnar neuropathy, brachial plexopathy, or cervical radiculopathy. CLINICAL COMMENT: EMG done by Dr. Fan 2021 reported right ulnar neuropathy at the elbow. Study today did not show any slowing across the elbow on the right. Thank you for your kind referral. Norma Bermeo MD, SHARON Board Certified, [place] Board [employer] Physical Medicine and Rehabilitation (ABPMR) Board Certified, [place] Board of Electrodiagnostic Medicine (ABEM) CODIN [id number] x2 MTDD
== END 2023-04-06 14:18 | disposition home or self-care (01) ==
LOC: HO.NEURO 14:17
PROVIDERS: PCP Internal Medicine; Visit Provider Orthopaedic Surgery
DX: R20.0 Anesthesia of skin (principal); R20.2 Paresthesia of skin
CPT/HCPCS: 95886; 95911

== ENCOUNTER → 2023-04-06 14:19 | Outpatient (BNV) | payer MEDICAID, SELFPAY | PROVIDERS: PCP Internal Medicine; Visit Provider Physical Medicine & Rehabilitation | DX: M79.601 Pain in right arm (principal); M25.521 Pain in right elbow; M79.602 Pain in left arm | CPT/HCPCS: 95886; 95911 ==

== ENCOUNTER 2023-08-17 13:12 | Outpatient (REF) | payer SELFPAY ==
[2023-08-20 12:44] LABS: TS Negative Control Passed; TS Panel A 0; TS Panel B 0; TS Positive Control Passed; TSpotTB Negative (Negative)
== END 2023-08-17 13:13 | disposition home or self-care (01) ==
LOC: HO.CHCLDS 13:12
PROVIDERS: Visit Provider Internal Medicine
DX: Z11.1 Encounter for screening for respiratory tuberculosis (principal)
CPT/HCPCS: 36415; 86481

== ENCOUNTER 2024-01-11 11:14 | Outpatient (REF) | payer MEDICAID, SELFPAY ==
--- NOTE | ~2024-01-11 | XR_ITS ---
EXAMINATION: XR CERVICAL SPINE CLINICAL INFORMATION: Neck pain COMPARISON: None available. TECHNIQUE: 4 views of the cervical spine FINDINGS: Straightening of the normal cervical lordosis. Multilevel cervical spondylosis with moderate to marked degenerative changes and loss of disc space height at C5-6. Mild loss of disc space height with degenerative changes at C6-C7. XR/XR cervical spine 3V IMPRESSION: Multilevel cervical spondylosis most notable at C5-C6.
== END 2024-01-11 11:15 | disposition home or self-care (01) ==
LOC: HO.HOSX 11:14
PROVIDERS: PCP Internal Medicine; Visit Provider Physical Medicine & Rehabilitation
DX: M54.2 Cervicalgia (principal); M79.18 Myalgia, other site
CPT/HCPCS: 72040; 99212

== ENCOUNTER 2024-01-11 11:14 | Outpatient (AMB) | payer MEDICAID, SELFPAY ==
--- NOTE | 2024-01-11 11:35 | MHC.OFFVIS ---
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 Patient reports her symptoms started roughly 6 to 7 months ago. She expresses burning pain is located on the left side of her neck and radiates to the anterior and posterior aspect of her shoulder. The pain she has is all day and night and does not allow her to sleep. Some days her symptoms affect her work and are so severe she is unable to bend/move her neck. She has tried ibuprofen and topical gel for pain but found very little relief. Denies recent injury, numbness, and tingling to her neck and left shoulder. Patient is stating she is having numbness and tingling in her bilateral hands and has not done another EMG since her last on 04/06/23. Hx of right shoulder roughly 4 to 5 years ago, she had a bump removed. 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 Worse with bending or looking down. Worse with repetitive activities. No fall or inciting injury. Patient was previously seen by Dr. Fitch for symptoms of ulnar neuropathy. EMG 05/[address] Fan showed mild ulnar neuropathy. Repeat EMG by [facility] 04/06/2023 bilateral upper extremities were normal. Treatment done so far: NSAIDs, muscle relaxer helped No PT yet. 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 Patient was appropriately conversant and oriented. Good historian. MSK: Inspection reveals appropriate head and neck positioning. No pain with palpation over the neck musculature. Tight on left upper trapezius. No tenderness on rhomboids. Cervical ROM was full. Spurling's sign negative. No scapular winging. Negative Mari sign. Negative empty can sign. Negative speed's test. Left carpal compression on the wrist positive. Negative Tinel sign on elbow. Bilateral shoulder, elbow and wrist ROM WNL. No ligamentous laxity or crepitance. No increased effusion. Strength is 5/5 in all muscle groups tested. No increased tone noted. Neurological: Neurologic examination of the upper and lower extremities was nonfocal with intact sensation, muscle stretch reflexes and without focal motor deficits . Keen?s negative bilaterally. Babinski was down going bilaterally. Clonus was negative. Gait is non-antalgic without loss of balance. Results Reviewed Results Reviewed: I independently reviewed the results of the following: Cervical x-rays done in the office today showed anterior endplate spaces, relatively preserved disc spaces, loss of lordosis. I reviewed records from the following: Hand surgery Assessment & Plan Assessment & Plan (1) Neck pain: Code(s): M54.2 - Cervicalgia Category: Medical (2) Myofascial pain: Code(s): M79.18 - Myalgia, other site Category: Medical Plan Exam does not show any signs of cervical radiculopathy or rotator cuff injury. She does have tenderness on left upper trapezius consistent with her symptoms. We will refer her to physical therapy for myofascial release and gradual introduction to home exercise program. Consider trigger point injections after PT if not improved. Patient asking for refill of muscle relaxer that she had borrowed from her friend. She does not know the name of this. Advised against bothering medications from friends. Patient said she will talk with PCP regarding medication. Assessment and plan discussed with patient, and patient was agreeable. All questions were answered thoroughly. Follow-up 2 months, after PT. Norma Bermeo MD, SHARON Board Certified, [place] Board [employer] Medicine and Rehabilitation (ABPMR) Board Certified, [place] Board [employer] Electrodiagnostic Medicine (ABEM) Orders: Orders XR cervical spine 3V Today M54.2 - Cervicalgia PT Evaluation and Treatment Today M54.2 - Cervicalgia, M79.18 - Myalgia, other site Coding Level of Care Code New Pt Level 4 (79262) Diagnoses Neck pain M54.2 Myofascial pain M79.18
[2024-01-11 11:36] VITALS: BMI 37.3
== END 2024-01-11 12:13 | disposition home or self-care (01) ==
PROVIDERS: PCP Internal Medicine; Visit Provider Physical Medicine & Rehabilitation
DX: M54.2 Cervicalgia (principal); M79.18 Myalgia, other site
CPT/HCPCS: 99214

== ENCOUNTER 2024-02-08 16:14 | Outpatient (REF) | payer MEDICAID, SELFPAY | END 2024-02-08 16:15 | disposition home or self-care (01) | LOC: HO.CHCLNP 16:14 | PROVIDERS: Visit Provider Family Medicine | DX: Z13.89 Encounter for screening for other disorder (principal) ==

== ENCOUNTER 2024-03-14 10:48 | Outpatient (AMB) | payer MEDICAID, SELFPAY ==
--- NOTE | 2024-03-14 10:58 | A.OFFVIS_ITS ---
Intake Visit Reasons: OV-left neck pain radiating to shoulder Intake Note: Adeline is a 48 year old female who presents today for a follow up visit of her left side neck pain that is radiating into her left shoulder. Patient reports she has started PT and is finding relief, she missed two appointments however she says she will make them up this week. She says she is no longer having burning sensation that radiates into her shoulder however she has intermittent sharp pains throughout the day randomly. Reports being on blood pressure medication but can not remember the name. Allergies No Known Allergies Allergy (Verified 03/14/24 11:02) Medication List - Last Reconciled 03/14/24 by Norma Bermeo MD albuterol sulfate 90 mcg/actuation 2 puffs inhalation Q4-6H PRN fluticasone propionate 110 mcg/actuation (Flovent HFA) 2 puffs inhalation BID ipratropium-albuterol 0.5 mg-3 mg(2.5 mg base)/3 mL 3 mL inhalation Q6H nebulizers As directed prednisone 20 mg PO DAILY semaglutide (weight loss) (Wegovy) 0.5 mg subcut QWEEK HPI Comments Details: She has left sided neck pain, that starts posterior head, trapezius and anterior shoulder. Worse with bending or looking down. Worse with repetitive activities. No fall or inciting injury. Patient was previously seen by Dr. Fitch for symptoms of ulnar neuropathy. EMG 05/[address] Fan showed mild ulnar neuropathy. Repeat EMG by [place] 04/06/2023 bilateral upper extremities were normal. Treatment done so far: NSAIDs, muscle relaxer helped PT has helped. Feeling better a little bit. Still with lateral neck pain sometimes. Goes more to right side. Tingling on right hand/arm sometimes. 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 Patient was appropriately conversant and oriented. Good historian. MSK: Inspection reveals appropriate head and neck positioning. That has tender on upper trapezius anymore. Cervical ROM was full. Spurling's sign negative. No scapular winging. Strength is 5/5 in all muscle groups tested. No increased tone noted. Neurological: Neurologic examination of the upper and lower extremities was nonfocal with intact sensation, muscle stretch reflexes and without focal motor deficits . Keen?s negative bilaterally. Gait is non-antalgic without loss of balance. Results Reviewed Results Reviewed: Ordering Physician: Norma Houston Date of Service: 01/11/24 Procedure(s): XR cervical spine 3V Accession Number(s): [id number] cc: Liam Xie MD; Norma Houston~ EXAMINATION: XR CERVICAL SPINE CLINICAL INFORMATION: Neck pain COMPARISON: None available. TECHNIQUE: 4 views of the cervical spine FINDINGS: Straightening of the normal cervical lordosis. Multilevel cervical spondylosis with moderate to marked degenerative changes and loss of disc space height at C5-6. Mild loss of disc space height with degenerative changes at C6-C7. XR/XR cervical spine 3V IMPRESSION: Multilevel cervical spondylosis most notable at C5-C6. Assessment & Plan Assessment & Plan (1) Radiculitis of left cervical region: Code(s): M54.12 - Radiculopathy, cervical region Category: Medical (2) Myofascial pain: Code(s): M79.18 - Myalgia, other site Category: Medical Plan Myofascial pain on upper trapezius much improved with PT. Continue PT. However she continues to have symptoms of left-sided cervical radiculopathy, neck pain with numbness in left hand, despite EMG being normal. Cervical x-rays did show disc space narrowing C5-6 and C6-7. Patient had undergone adequate conservative management including PT without improvement of condition. It would be reasonable to obtain further imaging such as MRI. An MRI would help rule out any serious condition, guide treatment and assess prognosis for recovery. Specifically ruling out left C5-6 or C6-7 disc herniation. Assessment and plan discussed with patient, and patient was agreeable. All questions were answered thoroughly. Follow up after MRI. Norma Bermeo MD, SHARON Board Certified, [place] Board of Physical Medicine and Rehabilitation (ABPMR) Board Certified, [place] Board [employer] Electrodiagnostic Medicine (ABEM) Orders: Orders MR cervical spine wo con Today M54.12 - Radiculopathy, cervical region Coding Level of Care Code Est Pt Level 4 (33234) Diagnoses Radiculitis of left cervical region M54.12 Myofascial pain M79.18
== END 2024-03-14 11:41 | disposition home or self-care (01) ==
PROVIDERS: PCP Internal Medicine; Referring Provider Internal Medicine; Visit Provider Physical Medicine & Rehabilitation
DX: M54.12 Radiculopathy, cervical region (principal); M79.18 Myalgia, other site
CPT/HCPCS: 99214

== ENCOUNTER → 2024-03-14 10:48 | Outpatient (BNVA) | payer MEDICAID, SELFPAY | PROVIDERS: PCP Internal Medicine; Visit Provider Physical Medicine & Rehabilitation | DX: M54.12 Radiculopathy, cervical region (principal); M79.18 Myalgia, other site | CPT/HCPCS: 99212 ==

== ENCOUNTER 2024-03-15 15:00 | Outpatient (RCR) | payer MEDICAID, SELFPAY ==
[2024-01-30 12:09] VITALS: BP 120/64; PULSE 86
--- NOTE | 2024-01-31 17:46 | MHC.PT.EP ---
[facility] [place] Office [place] Office [place] Office [address] [phone] F: [phone] F: [phone] F: [phone] F: [phone] Physical Therapy Plan of Care Date of Evaluation: 01/30/24 Date of Surgery: n/a Diagnosis: Cervicalgia Myalgia, other site Assessment: Pt is a pleasant 48yo F who presents to PT with left neck pain. She presents to PT with current impairments in pain, decreased cervical ROM, decreased shoulder ROM, soft tissue restrictions, and impaired posture. She is limited functionally by looking up/down, lifting, overhead ADLs, and reaching behind back. She is an excellent candidate for skilled PT in order to address current impairments to facilitate return to PLOF. She is recommended to be seen 2x/week for 4 weeks and will be reassessed at that time Frequency and Duration: The patient will be seen 2x/week for 4 weeks Short Term Goals: Pt will be I with HEP to promote self management of symptoms Pt will improve B cervical lateral flexion by at least 10 degrees B Almond Sorter Goals: Pt will achieve full cervical spine ROM all planes with minimal to no discomfort Pt will perform overhead ADLs with minimal to no pain or compensation Treatment Plan: Modalities to reduce pain, spasms and effusion. Manual therapy to restore motion and function. Therapeutic exercise to improve strength and flexibility. Neuromuscular re-education for posture and balance. Therapeutic activities to return to functional activities of daily living. Electronically signed by: Sailaja Marrero, PT, DPT Please sign and return to therapist. Thank you for your referral.
--- NOTE | 2024-05-07 08:20 | MHC.PT.DC ---
[facility] [place] Office [place] Office [place] Office [address] Milka Mata [address] [phone] F: [phone] F: [phone] F: [phone] F: [phone] Physical Therapy Discharge Report Diagnosis: Cervicalgia Myalgia, other site Date of Surgery: n/a Date of Evaluation: 01/30/24 Date of Discharge: 05/07/24 Treatments to Date: 7 Cancellations to Date: 2 No Shows to Date: 3 Discharge Status: Achieved Goals Improved Function Independent with HEP Discharge Summary: Pt was seen for PT from 01/30/24-03/15/24. Per last PT treatment note, pt is independent with HEP and met her STGs and LTGs. Her last scheduled and attended PT appointment was 03/15/24. She was D/C'd to HEP on 03/15/24 Electronically signed by: Sailaja Marrero, PT, DPT Please sign and return to therapist. Thank you for your referral.
== END 2024-05-07 08:20 | disposition home or self-care (01) ==
LOC: HO.PT 15:00
PROVIDERS: PCP Internal Medicine; Visit Provider Physical Medicine & Rehabilitation
DX: M54.2 Cervicalgia (principal); M79.18 Myalgia, other site
CPT/HCPCS: 97012; 97110; 97140; 97161

== ENCOUNTER 2024-04-03 11:07 | Outpatient (REF) | payer MEDICAID, SELFPAY ==
[2024-04-03 14:26] LABS: MANUAL DIFF FLAG NO
[2024-04-03 14:45] LABS: Basophils Percent Auto 0.6 % (0-2); Imm Gran Abs Auto 0.01 X10*3/uL (0.00-0.03); Imm Gran Pct Auto 0.2 % (0.0-0.4); Lymphocytes Absolute Auto 1.7 X10*3/uL (1.2-4.9); Lymphocytes Percent Auto 34.2 % (20-40); Mean Corpuscular HGB Conc 33.3 g/dl (31.0-35.0); Mean Corpuscular Hemoglobin 28.8 pg (27.0-33.0); Mean Corpuscular Volume 86.3 fL (80.0-98.0); Mean Platelet Volume 11.4 fL (9.4-12.3); Monocytes Absolute Auto 0.5 X10*3/uL (0.1-1.2); Monocytes Percent Auto 10.3 % (2-11); Neutrophils Absolute Auto 2.7 x10*3/uL (2.0-8.3); Neutrophils Percent Auto 54.7 % (45-73); Platelet Count 211 X10*3/uL (160-400); Red Blood Count 4.17 X10*6/uL (4.20-5.50); Red Cell Distribution Width 13.2 % (11.0-16.0); White Blood Count 4.9 X10*3/uL (4.8-10.8)
[2024-04-03 17:43] LABS: Rheumatoid Factor < 13.0 IU/mL (<15.0)
[2024-04-03 18:07] LABS: Alanine Aminotransferase 16 U/L (0-31); Albumin Level 4.1 g/dL (3.5-5.0); Alkaline Phosphatase 65 U/L (39-117); Anion Gap 10 (12-20); Aspartate Amino Transferase 14 U/L (5-31); Bilirubin Total 0.2 mg/dL (0.0-1.0); Blood Urea Nitrogen 12 mg/dL (9-16); Calcium 9.5 mg/dL (8.4-10.2); Carbon Dioxide 23 mmol/L (22-29); Chloride 109 mmol/L (96-108); Cholesterol 190 mg/dL (<200); Estimated Glomerular Filt Rate > 60; Glucose Random 94 mg/dL (60-115); HDL Cholesterol 32 mg/dL (>40); LDL Cholesterol Calculated 100 mg/dL (<100); Potassium 3.7 mmol/L (3.3-5.1); Sodium 138 mmol/L (135-145); Total Protein 7.3 g/dL (6.5-8.0); Triglycerides 293 mg/dL (<150)
[2024-04-03 18:23] LABS: Blood Urea Nitrogen 12 mg/dL (9-16); Estimated Glomerular Filt Rate > 60
[2024-04-03 18:27] LABS: T4 Thyroxine 7.3 ug/dL (4.5-12.0); TSH reflex Free T4 0.81 uIU/mL (0.32-4.0)
[2024-04-04 08:08] LABS: Triiodothyronine T3 Total 133 ng/dL (76-181)
[2024-04-04 08:27] LABS: HIV AB/AG Nonreactive (Nonreactive); HIV Num 1 0.04 S/CO (0.00-0.99)
[2024-04-04 09:18] LABS: Rubella IgG Antibody 3.06 Index
[2024-04-04 20:08] LABS: Lyme Abs Screen <0.90 index
[2024-04-05 12:48] LABS: RPR Rapid Plasma Reagin NON-REACTIVE (NON-REACTIVE)
[2024-04-06 16:12] LABS: TS Negative Control Passed; TS Panel A 0; TS Panel B 2; TS Positive Control Passed; TSpotTB Negative (Negative)
[2024-04-06 19:04] LABS: Angiotensin Converting Enzyme 13 U/L (9-67)
== END 2024-04-03 11:08 | disposition home or self-care (01) ==
LOC: HO.CHCLDS 11:07
PROVIDERS: PCP Internal Medicine; Referring Provider Ophthalmology; Visit Provider Internal Medicine
DX: H04.02 Chronic dacryoadenitis (principal); R73.03 Prediabetes; I10 Essential (primary) hypertension
CPT/HCPCS: 36415; 80053; 80061; 82164; 82565; 84436; 84443; 84480; 84520; 85025; 86431; 86481; 86592; 86617; 86618; 86762; 87389

== ENCOUNTER 2024-06-06 13:05 | Outpatient (REF) | payer MEDICAID, SELFPAY ==
[2024-06-06 14:29] LABS: Appearance Urine Turbid; Color Urine Yellow; Glucose Urine UA Negative (Negative); Leukocyte Esterase Urine Small (1+) (Negative); Nitrite Urine Negative (Negative); PH 5.5 (5.0-9.0); UMIC TRIGGER UACC YES; Urine Blood Negative (Negative); Urine Ketones Negative (Negative); Urine Protein Negative (Neg-Trace)
[2024-06-06 15:08] LABS: Bacteria Urine 4+ (None Seen); Hyaline Casts Urine 0-2 /LPF (0-2); RBC Urine 0-2 /HPF (0-2); Squamous Epithelial Cell Urine >20 /HPF (0-2); UACC Culture Trigger YES; WBC Urine 21-50 /HPF (0-5)
[2024-06-06 15:27] LABS: Bacterial Vaginosis PCR POSITIVE (Negative); Candida Group PCR NOT DETECTED (Not Detect); Candida glab krusei PCR NOT DETECTED (Not Detect); Trichomonas vaginalis PCR NOT DETECTED (Not Detect)
== END 2024-06-06 13:06 | disposition home or self-care (01) ==
LOC: HO.CHCLNP 13:05
PROVIDERS: Visit Provider Internal Medicine
DX: N89.8 Other specified noninflammatory disorders of vagina (principal); A60.1 Herpesviral infection of perianal skin and rectum
CPT/HCPCS: 0352U; 81001; 87086; 87088; 87186

== ENCOUNTER 2024-12-20 11:41 | Outpatient (REF) | payer MEDICAID, SELFPAY ==
--- OUTSIDE RECORDS SUMMARY | 2024-12-20 13:49 | XMS_ITS | Clinical Summary ---
Author Organization [employer] Address [address] [place] [address] Care Team Providers Care Loading Machine Tool Setter Name Role Phone Liam Xie MD Primary Care Prov ider Allergies No known active allergies Medications albuterol (ProAir HFA) 108 (90 Base) MCG/ACT inhaler Inhale 2 puffs every 4 (four) hours. 18 g 3 3 Active Ketotifen Fumarate ( Ketotifen Fumarate) 0.035 % solution Administer 1 drop into affected eye(s) 2 times daily. 10 mL 3 4 Active Blood Pressure kit 1 kit Once per day. 1 kit 4 Active valACYclovir (Valtrex) 500 MG tablet Take 1 tablet by mouth twice a day for 3 days. Repeat 3-day course of treatment at first sign of recurrent symptoms. 6 tablet 5 4 Active calamine-zinc oxide lotion Apply topically if needed (Itching). Apply to affected area as needed. 118 mL 4 Active losartan (Cozaar) 50 MG tablet Take 1 tablet (50 mg) by mouth Once per day. 90 tablet 3 5 10/12/19 26 Active Diclofenac Sodium (Voltaren) 1 % gel Apply 2 g topically 3 times daily. 350 g 1 5 Active phentermine 15 MG capsule Take 1 capsule (15 mg) by mouth before breakfast. 30 capsule 5 12/21/19 25 Discontinu ed(Ineffec tive) topiramate (Topamax) 50 MG tablet Take 1 tablet (50 mg) by mouth Once per day. 30 tablet 2 5 12/21/19 25 Discontinu ed(Ineffec tive) Active Problems Problem Noted Date Diagnosed Date Chronic pain of right knee 01/11/2024 Assessment & Plan (01/11/2024 6:16 PM EDT): Will place referral to ortho for eval as patient requested Class 2 severe obesity due t o excess calories with serious comorbidity and body mass index (BMI) of 37.0 to 37.9 in adult 01/11/2024 Assessment & Plan (12/20/2024 11:36 AM EDT): Will refer to bariatric surgery, patient not interested in taking phentermine and topamax, Assessment & Plan (09/21/2024 4:20 PM EDT): Will provide topamax and phentermine, encouraged exercise 15 min a day, low calorie diet [id number] daily, follow up in 3 months Assessment & Plan (06/12/2024 3:26 PM EST): Patient refers using wegovy as indicated, but based on wegiht graph she has not lost the expected weight, insurance denied wegovy, she was told about the reason for denial, she will call back if interested in nutrition or bariatric surgery referral Assessment & Plan (05/01/2024 10:56 PM EDT): Will increase wegovy to 1.7mg, continue low calorie intake, follow up in 6 weeks Assessment & Plan (03/13/2024 12:02 AM EDT): Tolerated wegovy 0.25, will increase dose to 0.5mg, follow up in 6 weeks Assessment & Plan (01/11/2024 6:17 PM EDT): Will start wegovy Risk vs benefits discussed Primary hypertension 01/11/2024 Assessment & Plan (12/20/2024 11:35 AM EDT): Patient did not took her medications this morning, discussed importance of treatment adherance, continue low sodium diet and exercise as tolerated, keep bp log, target <140/90 Assessment & Plan (10/11/2024 10:24 AM EDT): Patient on losartan 50mg, told to keep low sodium diet and exercise as tolerated, keep bp log, follow up in 3 months Assessment & Plan (06/12/2024 3:24 PM EST): Controlled, continue losartan, continue low sodium diet and exercise as tolerated, keep bp log, follow up in 4 months Assessment & Plan (05/01/2024 10:55 PM EDT): Elevated, she has been of treatment for 1 week, encouraged importance of medication adherance, continue low sodium diet, exercise, keep bp log, follow up in 3 months Assessment & Plan (03/13/2024 12:01 AM EDT): Controlled, continue losartan, continue bp monitoring, her bp meds might need readjustments as she looses weight, target <140/90 Assessment & Plan (01/11/2024 6:16 PM EDT): Repeated, was elevated, new bp kit sent, will start on losartan, continue low sodium diet follow up in 1 month Right hip pain 10/31/2023 Assessment & Plan (10/31/2023 10:30 AM EDT): Will send naproxen, denied trauma, in case of not improving in 2 weeks call back for office appointment Seasonal allergies 10/31/2023 Assessment & Plan (10/31/2023 10:42 AM EDT): Will prescribe ketotifen for eye alllergy Physical exam 12/21/2022 Assessment & Plan (12/21/2022 10:06 AM EDT): Physical examination was unremarkable, will place order for labs for further assessment of conditions related to obesity. Reinforced importance of a balanced diet and exercise. Anxiety 10/26/2022 Chronic low back pain 10/26/2022 Depressive disorder 10/26/2022 Dislocation of joint of shoulder 10/26/2022 Fracture of foot 10/26/2022 Prediabetes 10/26/2022 Bilateral carpal tunnel syndrome 08/24/2022 Assessment & Plan (12/21/2022 10:05 AM EDT): Patient now reports worsening pain on the left side of her wrist despite wearing splints, will refer to hand surgery for evaluation Assessment & Plan (12/08/2022 2:21 PM EDT): Improved mildly with wrist splints, told to continue wearing them at night, may apply cold pads, avoid repetitive movements Assessment & Plan (08/24/2022 3:39 PM EST): Patient will be visiting specialist tomorrow, told to continue wearing night splints, continue ibuprofen for pain Macromastia 08/24/2022 Assessment & Plan (08/24/2022 3:40 PM EST): Patient completed PT 3 years ago due to back pain caused by enlarged breast, requesting plastic surgery evaluation for reduction, will place referal Screening for colon cancer 08/24/2022 Assessment & Plan (10/31/2023 10:30 AM EDT): Will send referral for screening colon cancer Assessment & Plan (08/24/2022 3:40 PM EST): Will refer for colonoscopy Encounter for screening mamm ogram for malignant neoplasm of breast 08/24/2022 Assessment & Plan (08/24/2022 3:40 PM EST): Will refer for mammogram Encounters Date Type Department Care Team Description 12/20/2024 11:15 AM EDT Office Visit [facility] [address] [place] [address] Liam Xie MD Encounter for screening mammogram for malignant neoplasm of breast (Primary Dx); Primary hypertension; Class 2 severe obesity due to excess calories with serious comorbidity and body mass index (BMI) of 37.0 to 37.9 in adult (CMS/HCC) 12/20/2024 Travel 10/11/2024 9:30 AM EDT Telemedicine [facility] [address] [place] [address] Liam Xie MD Primary hypertension (Primary Dx) 10/11/2024 Travel 10/10/2024 Telephone [facility] [address] [place] [address] Liam Xie MD chart prep 09/21/2024 Population Health Risk Score [facility] () Department [address] [place] [phone] Provider, Population Health Generic from Last 3 Months Immunizations Immunization Administration Dates Next Due Tdap 12/21/2022 Family History Medical History Relation Name Comments Diabetes Father Heart disease Father Hypertension Mother Relation Name Status Comments Father Mother Social History Tobacco Use Types Packs/Day Years Used Date Smoking Tobacco: Former Cigarettes 0.5 24 Passive Smoke Exposure: Current Smokeless Tobacco: Never Tobacco Cessation:Counseling Given: Not Answered Depression Answer Date Recorded Patient Health Questionnaire-9 Score 0 08/24/2022 Housing Stability Answer Date Recorded What is your housing situation today? I have betsy moreno 02/14/[address] you li ve. Do you have problems with any of the following? None of the above 02/14/2024 Food Insecurity Answer Date Recorded Within the past 12 months, y ou worried that your food would run out before you got money to buy more: Sometimes True 2023 Within the past 12 months,th e food you bought just didn't last and you didn't have enough money to get more: Sometimes True 02/14/2024 Transportation Answer Date Recorded In the past 12 months, has l ack of transportation kept you from medical appts, meetings, work or from getting things needed for daily living? No 01/03/2024 Utilities Answer Date Recorded In the past 12 months, has t he electric, gas, oil or water company threatened to shut off services in your home? No 02/14/2024 Depression Answer Date Recorded Patient Health Questionnaire-2 Score 1 10/31/2023 Internet Access Answer Date Recorded Internet Access Q1 Yes 03/09/2024 Internet Access Q2 Not on file 03/09/2024 Comments Unknown Sex and Gender Information Value Date Recorded Sex Assigned at Female 05/10/2022 10:16 AM EDT Legal Sex Female 10:16 AM EDT Gender Identity Female 05/10/2022 10:16 AM EDT Sexual Orientation Straight 05/10/2022 10 :16 AM EDT Last Filed Vital Signs Vital Sign Reading Time Taken Comments Blood Pressure 145/85 12/20/2024 11:19 AM EDT Pulse 78 12/20/2024 11:19 AM EDT Temperature 36.9 ??C (98.4 ??F) 12/20/2024 11:19 AM E DT Respiratory Rate 16 12/20/2024 11:19 AM EDT Oxygen Saturation 96% 06/06/2024 9:03 AM EST Inhaled Oxygen Concentration - - Weight 92.5 kg (204 lb) 12/20/2024 11:19 AM EDT Height 157.5 cm (5' 2 ) 12/20/2024 11:19 AM EDT Body Mass Index 37.31 12/20/2024 11:19 AM EDT Plan of Treatment Health Maintenance Due Date Last Done Comments CT Colonography 1975 Colonoscopy 1975 Colorectal Cancer Screening 1975 FIT DNA/Cologuard 1975 FIT 1975 FOBT 1975 Sigmoidoscopy 1975 Disability Screening 1975 Family Planning (PISQ) 1992 Hepatitis B Vaccines (1 of 3 - 19+ 3-dose series) 1996 Diabetes: Hemoglobin A1C 02/17/2024 02/16/2023 COVID-19 Vaccine (3 - 2023-2 5 season) 2024 02/04/2021, 01/14/2021 Depression Screening 10/30/2024 10/31/2023, 08/24/2022 Mammogram 01/24/2025 01/24/2023 Tobacco Screening 02/07/2025 02/08/2024 SDOH Screening 03/07/2025 03/07/2024 Influenza Vaccine (Season Ended) 2025 Alcohol/Substance Use Screening 05/01/2025 05/01/2024 Cervical Cancer Screening 02/03/2026 HPV/Cotest 02/03/2026 02/03/2021 Pap Smear 02/03/2026 02/03/2021 Zoster Vaccines (1 of 2) 2027 Lipid Panel 04/03/2029 04/03/2024, 02/16/2023 DTaP/Tdap/Td Vaccines (2 - T d or Tdap) 12/21/2032 12/21/2022 RSV Patients and Patients Aged 60 years or older (1 - 1-dose 75+ series) 2052 Hepatitis C Screening Completed 02/16/2023 HIV Screening Completed 04/03/2024 HIB Vaccines Aged Out No longer eligi ble based on patient's age to complete this topic HPV Vaccines Aged Out No longer eligi ble based on patient's age to complete this topic Hepatitis A Vaccines Aged Out No long er eligible based on patient's age to complete this topic IPV Vaccines Aged Out No longer eligi ble based on patient's age to complete this topic Meningococcal B Vaccine Aged Out No l onger eligible based on patient's age to complete this topic Meningococcal Vaccine Aged Out No sonal parker eligible based on patient's age to complete this topic Pneumococcal Vaccine: Pediatrics (0 to 5 Years) and At-Risk Patients (6 to 49) Years) Aged Out No longer eligible b ased on patient's age to complete this topic RSV under 20 months Aged Out No longe r eligible based on patient's age to complete this topic Rotavirus Vaccines Aged Out No longer eligible based on patient's age to complete this topic Procedures Procedure Name Priority Date/Time Associated Diagnosis Comments HIV 1/2 ANTIGEN/ANTIBODY, FOURTH GENERATION W/RFL Routine 04/03/2024 11:18 AM EDT Prediabetes LIPID PANEL, STANDARD Routine 04/03/2024 11:18 AM EDT Prediabetes HEPATITIS C ANTIBODY REFLEX Routine 02/16/2023 9:45 AM EDT HEMOGLOBIN A1C Routine 02/16/2023 9:45 AM EDT BI MAMMOGRAM SCREENING TOMOSYNTHESIS BILATERAL Routine 01/24/2023 1:25 PM EDT HPV MRNA E6/E7 Routine 02/03/2021 10:29 AM EDT THINPREP PAP Routine 02/03/2021 10:29 AM EDT from Last 3 Months or Most Recently Relevant to Health Maintenance Results * HIV-1/2 Antigen and Antibodies, Fourth Generation, with Reflexes (04/03/2024 11:18 AM EDT) HIV AB/AG Nonreactive Nonreactive [facility] Comment:HIV-1 p24 Ag and/or HIV-1/HIV-2 Ab not detected.A test result that is nonreactive does not exclude thepossibility of exposure to or infection with HIV-1 and/orHIV-2. Nonreactive results in this assay for individualswith prior exposure to HIV-1 and/or HIV-2 may be due toantigen and antibody levels that are below the limit ofdetection of this assay.The [employer] HIV Ag/Ab Combo assay result andsupplemental assay results should be interpreted inconjunction with the patient's clinical presentation,history and other laboratory results. If the results areinconsistent with clinical evidence, additional testing issuggested to confirm the result. Blood Venous blood specimen / Unknown 04/03/2024 11:18 AM EDT 04/03/2024 2:24 PM EDT us Liam Yu MD LAB BLOOD ORDERABL ES Final Result [facility] [address] [place] [phone] * (ABNORMAL) Lipid Panel, Standard (04/03/2024 11:18 AM EDT) Triglycerides 293(H) <150 mg/dL [facility] Comment:Desirable Triglyceri de: less than 150 mg/dLBorderline High Triglyceride 150-199 mg/dLHigh Triglyceride: 200-499 mg/dLVery High Triglyceride: greater than or equal to 5OO mg/dL Cholesterol 190 <200 mg/dL [facility] Comment:Desirable Cholestero l: less than 200 mg/dLBorderline High Cholesterol: 200-239 mg/dLHigh Cholesterol: greater than 239 mg/dL LDL Cholesterol Calculated 100(H) <100 mg/dL [facility] Comment:Desirable LDL: less than 100 mg/dLNear Optimal/Above Optimal LDL: 110- 129 mg/dLBorderline High LDL: 130-159 mg/dLHigh LDL: 160-189 mg/dLVery High LDL: greater than or equal to 190 mg/dL HDL Cholesterol 32(L) >40 mg/dL [facility] Comment:Desirable HDL: great er than 40 mg/dL Note: This HDL assay may give artificially low results in patients with liver disease. Blood Venous blood specimen / Unknown 04/03/2024 11:18 AM EDT 04/03/2024 2:24 PM EDT Liam Yu MD LAB BLOOD ORDERABL ES Final Result Performing Organization Address [facility] Co de Phone Number [facility] [address] [place] [phone] * Hepatitis C Antibody Reflex (02/16/2023 9:45 AM EDT) Hepatitis C Antibody Nonreactive Nonreactive [facility] Comment:Antibodies to HCV no t detected; does not exclude early acuteHCV infection. 02/16/2023 9:45 AM EDT 02/16/2023 2:23 PM EDT Liam Yu MD LAB BLOOD ORDERABL ES Final Result Performing Organization Address [facility] Co de Phone Number [facility] [address] [place] [phone] * Hemoglobin A1c (02/16/2023 9:45 AM EDT) Hemoglobin A1c 5.1 % [facility] Comment:Hemoglobin A1C Refer ence Range Adults: 4.8 - 6.0 % Non diabetic: < 6.0 % Goal: < 7.0 %Additional Action Suggested: > 8.0 %Note: Hemoglobin A1c results are invalid for patients with abnormal amounts of HbF. Blood transfusions may impact the HbA1c concentration in the patient sample. Estimated Average Glucose 100 mg/dL [facility] Comment:eAG = Estimated ave rage glucose which is %A1C expressed asaverage glucose, using the formula of the I6Z-YybsxamTajskij Glucose study (ADAG), Diabetes Care, Vol.31,#8,Feb. 2007 02/16/2023 9:45 AM EDT 02/16/2023 2:23 PM EDT us Laim Yu MD LAB BLOOD ORDERABL ES Final Result [facility] [address] [place] [phone] * BI Mammogram Screening Tomosynthesis Bilateral (01/24/2023 1:25 PM EDT) Anatomical Region Laterality Modality Breast Bilateral Mammography 01/24/2023 1:25 PM EDT Narrative 02/18/2023 5:58 AM EDT ? [facility] ? [address] ?[place] [address] ? Mammography Report ? Signed ? Patient: Julius,Adeline ?MR#: [id number] ?? 2 ? : 1975 ?Acct:[id number] ? Age/Sex: 47 / F ?ADM Date: 07/17/23 ? Loc: HO.MAMMO ? Attending : Liam Yu MD ? Ordering Physician: Liam Xie MD ?Res ?? ults: ? Date of Service: 01/24/23 ?Follow Up: ? Procedure(s): MM tomosynthesis screening BI ?? Accession Number(s): [id number] ? cc: Liam Xie MD ? EXAMINATION: ?? MM SCREENING DIGITAL BREAST TOMOSYNTHESIS, BILATERAL ? CLINICAL INFORMATION: ? Screening. Asymptomatic. ? The lifetime risk of breast cancer based on the Tyrer-Cuzick Model is ?? 10.2%. ? COMPARISON: ?? Mammography: This study is compared with prior exams dating back to ?? 2020. ? TECHNIQUE: ?? Digital breast tomosynthesis is performed in both the craniocaudal and ?? mediolateral oblique views along with computer-aided detection (CAD). ?? Synthesized 2D images are generated from the tomosynthesis. ? FINDINGS: ?? There are scattered areas of fibroglandular density (ACR BI-RADS breast ?? composition Category b). ? There are no significant masses, abnormal calcifications, or other ?? abnormalities. ? MM/MM tomosynthesis screening BI ?? IMPRESSION: ?? No mammographic evidence of malignancy. ? ASSESSMENT: ? BI-RADS BI-RADS 1 - Negative ? RECOMMENDATION: ?? Routine annual mammography screening. ? 1 year F/U ? This examination should not preclude the clinical evaluation of a ?? suspicious palpable abnormality. ? This patient's information was entered into a reminder system with a ?? target due date for their next mammogram. ? Dictated By: ?Layne Colunga MD ? Signed By: ?<Electronically signed by Layne Colunga MD in OV> ? /06/02 0555 ? DD/DT: 01/24/ 1325 ? TD/TT: ? Channeling Machine Runner: ? Procedure Note Donotuseinterpreter, Image - 02/18/2023 [facility] [address] [place], [place] [address] Mammography Report Signed Patient: Adeline MadridMR#: [id number] 2 : 1975Acct:[id number] Age/Sex: 47 / FADM Date: 01/24/23 Loc: HO.MAMMO Attending Dr: Liam Yu MD Ordering Physician: Liam Xie ults: Date of Service: 01/24/23Follow Up: Procedure(s): MM tomosynthesis screening BI Accession Number(s): [id number] cc: Liam Xie MD EXAMINATION: MM SCREENING DIGITAL BREAST TOMOSYNTHESIS, BILATERAL CLINICAL INFORMATION: Screening. Asymptomatic. The lifetime risk of breast cancer based on the Tyrer-Cuzick Model is 10.2%. COMPARISON: Mammography: This study is compared with prior exams dating back to 2020. TECHNIQUE: Digital breast tomosynthesis is performed in both the craniocaudal and mediolateral oblique views along with computer-aided detection (CAD). Synthesized 2D images are generated from the tomosynthesis. FINDINGS: There are scattered areas of fibroglandular density (ACR BI-RADS breast composition Category b). There are no significant masses, abnormal calcifications, or other abnormalities. MM/MM tomosynthesis screening BI IMPRESSION: No mammographic evidence of malignancy. ASSESSMENT: BI-RADS BI-RADS 1 - Negative RECOMMENDATION: Routine annual mammography screening. 1 year F/U This examination should not preclude the clinical evaluation of a suspicious palpable abnormality. This patient's information was entered into a reminder system with a target due date for their next mammogram. Dictated By: Layne Colunga MD Signed By: <Electronically signed by Layne Colunga MD in OV> 02/18/23 0555 DD/ 1325 TD/TT: Channeling Machine Runner: us Liam Yu MD IMG BI PROCEDURES Final Result * THINPREP PAP (02/03/2021 10:29 AM EDT) Clinical Information: None given [facility] COMMENT SEE COMMENT [facility] Comment: EXPLANATORY NOTE: ? The Pap is a screening test for cervical cancer. It is ?? not a diagnostic test and is subject to false negative ?? and false positive results. It is most reliable when a ?? satisfactory sample, regularly obtained, is submitted ?? with relevant clinical findings and history, and when ?? the Pap result is evaluated along with historic and ?? current clinical information. ?? Manager Deli : SEE COMMENT [facility] Comment: BK,CT(ASCP) CT screening location: [address] Infection Trichomonas vaginalis identified. [facility] Interpretation/R esult: Negative for intraepithelial lesion or malignancy. [facility] LMP: 01/18/2021 [facility] Prev. BX: NONE GIVEN [facility] Prev. PAP: NONE GIVEN [facility] Review Manager Deli : SEE COMMENT [facility] Comment: SXA, CT(ASCP) CT screening location: [address] ??[id number] SOURCE: None given [facility] Statement Of Adequacy: SEE COMMENT [facility] Comment: Satisfactory for evaluation. Endocervical/transformation zone component absent. 02/03/2021 10:2 9 AM EDT Eunice STEWART LAB PATHOLOGY ORDERABLES Final Result Performing Organization Address City/State/[facility] Co de Phone Number [facility] [address] * HPV mRNA E6/E7 (02/03/2021 10:29 AM EDT) HPV nRNA E6/E7 Not Detected Not Detected [facility] Comment: Methodology: Water Analyst-Mediated Amplification This assay detects E6/E7 viral messenger RNA (mRNA) from 14 high-risk HPV types (16,18,31,33,35,39,45,51,52,56,58,59,66,68). ? The analytical performance characteristics of this assay have been determined by [employer]. The modifications have not been cleared or approved by the FDA. This assay has been validated pursuant to the CLIA regulations and is used for clinical purposes. ?? For additional information, please refer to http://education.[employer]/faq/MSL159d0 (This link if provided for information/ educational purposes only.) 02/03/2021 10:2 9 AM EDT us Eunice STEWART LAB BLOOD ORDERABLES Yessy l Result [facility] [address] from Last 3 Months or Most Recently Relevant to Health Maintenance [place] [address] [place] [address] C3 Care Teams Loading Machine Tool Setter Relationship Specialty Start Date End Date Liam Xie MD NPI: [id number] [place] [id number] PCP - General Internal Medicine 11/26/20
[2024-12-20 14:12] LABS: MANUAL DIFF FLAG NO
[2024-12-20 14:15] LABS: Basophils Percent Auto 0.4 % (0-2); Hematocrit 36.1 % (37.0-47.0); Hemoglobin 12.4 g/dl (12.0-16.0); Imm Gran Abs Auto 0.01 X10*3/uL (0.00-0.03); Imm Gran Pct Auto 0.2 % (0.0-0.4); Lymphocytes Absolute Auto 1.9 X10*3/uL (1.2-4.9); Lymphocytes Percent Auto 37.8 % (20-40); Mean Corpuscular HGB Conc 34.3 g/dl (31.0-35.0); Mean Corpuscular Hemoglobin 29.2 pg (27.0-33.0); Mean Corpuscular Volume 85.1 fL (80.0-98.0); Mean Platelet Volume 11.3 fL (9.4-12.3); Monocytes Absolute Auto 0.4 X10*3/uL (0.1-1.2); Neutrophils Absolute Auto 2.7 x10*3/uL (2.0-8.3); Neutrophils Percent Auto 53.6 % (45-73); Platelet Count 179 X10*3/uL (160-400); Red Blood Count 4.24 X10*6/uL (4.20-5.50); Red Cell Distribution Width 14.5 % (11.0-16.0)
[2024-12-20 14:34] LABS: Alanine Aminotransferase 19 U/L (0-31); Albumin Level 4.3 g/dL (3.5-5.0); Alkaline Phosphatase 57 U/L (39-117); Anion Gap 11 (12-20); Aspartate Amino Transferase 28 U/L (5-31); Bilirubin Total 0.3 mg/dL (0.0-1.0); Blood Urea Nitrogen 13 mg/dL (9-16); Calcium 8.9 mg/dL (8.4-10.2); Carbon Dioxide 22 mmol/L (22-29); Chloride 110 mmol/L (96-108); Cholesterol 203 mg/dL (<200); Estimated Glomerular Filt Rate > 60; Glucose Random 95 mg/dL (60-115); HDL Cholesterol 41 mg/dL (>40); LDL Cholesterol Calculated 105 mg/dL (<100); Potassium 3.6 mmol/L (3.3-5.1); Sodium 139 mmol/L (135-145); Total Protein 6.9 g/dL (6.5-8.0); Triglycerides 289 mg/dL (<150)
[2024-12-20 14:53] LABS: TSH reflex Free T4 0.93 uIU/mL (0.32-4.0)
== END 2024-12-20 11:42 | disposition home or self-care (01) ==
LOC: HO.CHCLDS 11:41
PROVIDERS: Visit Provider Internal Medicine
DX: Z12.31 Encounter for screening mammogram for malignant neoplasm of breast (principal)
CPT/HCPCS: 36415; 80053; 80061; 84443; 85025

== ENCOUNTER 2025-01-02 21:15 | Emergency (ER) | payer MEDICAID, SELFPAY ==
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
[2025-01-02 21:27] VITALS: BP 153/85; PULSE 87; RESP 18; TEMP 36.3; O2SAT 94; BMI 37.7
[2025-01-02 22:42] VITALS: BP 146/84; PULSE 70; RESP 16; TEMP 37.1; O2SAT 95
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
[2025-01-03 01:07] VITALS: BP 146/72; PULSE 76; RESP 16; TEMP 37; O2SAT 100
[2025-01-03] MEDS: Ketorolac Tromethamine 60 MG/2 ML VIAL IM (01:11)
[2025-01-03] MEDS: Cyclobenzaprine HCl 10 MG TABLET PO (01:11)
[2025-01-03 01:18] VITALS: BP 146/72; PULSE 76; RESP 16; TEMP 37; O2SAT 100
== END 2025-01-03 01:19 | disposition home or self-care (01) ==
PROVIDERS: Emergency Provider Internal Medicine
DX: S16.1XXA Strain of muscle, fascia and tendon at neck level, initial encounter (principal); X50.1XXA Overexertion from prolonged static or awkward postures, initial encounter; M25.512 Pain in left shoulder; M54.2 Cervicalgia; M25.532 Pain in left wrist; M25.511 Pain in right shoulder; Y93.17 Activity, water skiing and wake boarding; Y93.9 Activity, unspecified; Y92.9 Unspecified place or not applicable; Y99.8 Other external cause status; Z79.899 Other long term (current) drug therapy; F17.210 Nicotine dependence, cigarettes, uncomplicated
CPT/HCPCS: 72125; 73030; 73100; 96372; 99284; J1885

== ENCOUNTER → 2025-01-02 22:40 | Outpatient (BNV) | payer MEDICAID, SELFPAY | PROVIDERS: Emergency Provider Internal Medicine; Visit Provider Radiology Diagnostic Radiology | DX: S19.9XXA Unspecified injury of neck, initial encounter (principal); M25.511 Pain in right shoulder; M25.532 Pain in left wrist; V91.83XA Other injury due to other accident to other powered watercraft, initial encounter | CPT/HCPCS: 72125; 73030; 73100 ==

== ENCOUNTER 2025-01-16 11:27 | Outpatient (REF) | payer MEDICAID, SELFPAY ==
--- OUTSIDE RECORDS SUMMARY | 2025-01-16 12:40 | XMS_ITS | Clinical Summary ---
Author Organization [employer] Address [address] [place] [address] Care Team Providers Care Melter Supervisor [employer] Name Role Phone Liam Xie MD Primary [...] 15 min a day, low calorie diet [id number] daily, follow up in 3 months Assessment [...] Encounters Date Type Department Care Team Description 01/01/2025 Telephone [facility] [address] [place] [address] Liam Xie MD Nurse Triage 12/20/2024 11:15 AM EDT Office Visit [facility] [address] [place] [address] Liam Xie MD Encounter for screening mammogram for malignant neoplasm of breast (Primary Dx); Primary hypertension; Class 2 severe obesity due to excess calories with serious comorbidity and body mass index (BMI) of 37.0 to 37.9 in adult ([facility]) 12/20/2024 Results Follow-Up [facility] [address] [place] [address] Liam Xie MD CBC auto differential, Comprehensive Metabolic Panel, Lipid Panel, Standard, TSH W/Reflex to FT4 12/20/2024 Travel from Last 3 Months Immunizations Immunization Administration [...] 78 12/20/2024 11:19 AM EDT Temperature 36.9 C (98.4 F) 12/20/2024 11:19 AM EDT Respiratory Rate 16 12/20/2024 11:19 AM EDT Oxygen Saturation 96% 06/06/2024 9:03 AM EST Inhaled Oxygen Concentration - - Weight 92.5 kg (204 lb) 12/20/2024 11:19 AM EDT Height 157.5 cm (5' 2 ) 12/20/2024 11:19 AM EDT Body Mass Index 37.31 12/20/2024 11:19 AM EDT Plan of Treatment Upcoming Encounters Date Type Department Care Team ([facility] st Contact Info) Description 04/01/2025 1:45 PM EDT Office Visit [facility] [address] [place] [address] AndrewLiam Ward MD [address] [place] [address] Health Maintenance Due Date Last Done Comments [...] 02/08/2024 SDOH Screening 03/07/2025 03/07/2024 Influenza Vaccine (#1) 2025 Alcohol/Substance Use Screening 05/01/2025 05/01/2024 Cervical Cancer Screening 02/03/2026 HPV/Cotest 02/03/2026 02/03/2021 Pap Smear 02/03/2026 02/03/2021 Zoster Vaccines (1 of 2) 2027 Lipid Panel 12/20/2029 12/20/2024, 04/03/2024, 02/16/2023 DTaP/Tdap/Td Vaccines (2 - T [...] Years) and At-Risk Patients (6 to 49) Years Aged Out No longer eligible b ased on patient's age to complete this topic RSV under 20 months Aged Out No longe r eligible based on patient's age to complete this topic Rotavirus Vaccines Aged Out No longer eligible based on patient's age to complete this topic Procedures Procedure Name Priority Date/Time Associated Diagnosis Comments TSH W/REFLEX TO FT4 Routine 12/20/2024 1 2:00 AM EDT Encounter for screening mammogram for malignant neoplasm of breast LIPID PANEL, STANDARD Routine 12/20/2024 12:00 AM EDT Encounter for screening mammogram for malignant neoplasm of breast COMPREHENSIVE METABOLIC PANEL Routine 12/20/2024 12:00 AM EDT Encounter for screening mammogram for malignant neoplasm of breast CBC WITH AUTO DIFFERENTIAL Routine 12/20/2024 12:00 AM EDT Encounter for screening mammogram for malignant neoplasm of breast HIV 1/2 ANTIGEN/ANTIBODY, FOURTH GENERATION W/RFL Routine 04/03/2024 11:18 AM EDT Prediabetes HEPATITIS C ANTIBODY REFLEX Routine 02/16/2023 9:45 AM EDT HEMOGLOBIN A1C Routine 02/16/2023 9:45 AM EDT BI MAMMOGRAM SCREENING TOMOSYNTHESIS BILATERAL Routine 01/24/2023 1:25 PM EDT HPV MRNA E6/E7 Routine 02/03/2021 10:29 AM EDT THINPREP PAP Routine 02/03/2021 10:29 AM EDT from Last 3 Months or Most Recently Relevant to Health Maintenance Results * TSH W/Reflex to FT4 (12/20/2024 12:00 AM EDT) TSH reflex Free T4 0.93 0.32 - 4.0 uIU/mL [facility] Blood Venous blood specimen / Unknown 12/20/2024 12/20/2024 Liam Yu MD LAB BLOOD ORDERABL ES Final Result [facility] [address] [place] [phone] * (ABNORMAL) CBC auto differential (12/20/2024 12:00 AM EDT) White Blood Count 5.0 4.8 - 10.8 X10*3/uL [facility] Red Blood Count 4.24 4.20 - 5.50 X10*6/uL [facility] Hemoglobin 12.4 12.0 - 16.0 g/dl [facility] Hematocrit 36.1(L) 37.0 - 47.0 % [facility] Mean Corpuscular Volume 85.1 80.0 - 98.0 fL [facility] Mean Corpuscular Hemoglobin 29.2 27.0 - 33.0 pg [facility] Mean Corpuscular HGB Conc 34.3 31.0 - 35.0 g/dl [facility] Red Cell Distribution Width 14.5 11.0 - 16.0 % [facility] Platelet Count 179 160 - 400 X10*3/uL [facility] Mean Platelet Volume 11.3 9.4 - 12.3 fL [facility] Neutrophils Percent Auto 53.6 45 - 73 % [facility] Imm Gran Pct Auto 0.2 0.0 - 0.4 % [facility] Lymphocytes Percent Auto 37.8 20 - 40 % [facility] Monocytes Percent Auto 8.0 2 - 11 % [facility] Eosinophils Percent Auto 0.0 0 - 4 % [facility] Basophils Percent Auto 0.4 0 - 2 % [facility] NRBC Pct Auto 0.0 0.0 - 0.2 /100WBC [facility] Neutrophils Absolute Auto 2.7 2.0 - 8.3 x10*3/uL [facility] Imm Gran Abs Auto 0.01 0.00 - 0.03 X10*3/uL [facility] Lymphocytes Absolute Auto 1.9 1.2 - 4.9 X10*3/uL [facility] Monocytes Absolute Auto 0.4 0.1 - 1.2 X10*3/uL [facility] Eosinophils Absolute Auto 0.0 0.0 - 0.4 X10*3/uL [facility] Basophils Absolute Auto 0.0 0.0 - 0.2 X10*3/uL [facility] NRBC Abs Auto 0.000 0.0 - 0.012 X10*3/uL [facility] Blood Venous blood specimen / Unknown 12/20/2024 12/20/2024 Liam Yu MD LAB BLOOD ORDERABL ES Final Result Performing Organization Address City/[facility]/ZIP Co de Phone Number [facility] [address] [place] [phone] * (ABNORMAL) Lipid Panel, Standard (12/20/2024 12:00 AM EDT) Triglycerides 289(H) <150 mg/dL [facility] Comment:Desirable Triglyceri de: less than 150 mg/dLBorderline High Triglyceride 150-199 mg/dLHigh Triglyceride: 200-499 mg/dLVery High Triglyceride: greater than or equal to 5OO mg/dL Cholesterol 203(H) <200 mg/dL [facility] Comment:Desirable Cholestero l: less than 200 mg/dLBorderline High Cholesterol: 200-239 mg/dLHigh Cholesterol: greater than 239 mg/dL LDL Cholesterol Calculated 105(H) <100 mg/dL [facility] Comment:Desirable LDL: less than 100 mg/dLNear Optimal/Above Optimal LDL: 110- 129 mg/dLBorderline High LDL: 130-159 mg/dLHigh LDL: 160-189 mg/dLVery High LDL: greater than or equal to 190 mg/dL HDL Cholesterol 41 >40 mg/dL [facility] Comment:Desirable HDL: great er than 40 mg/dL Note: This HDL assay may give artificially low results in patients with liver disease. Blood Venous blood specimen / Unknown 12/20/2024 12/20/2024 Liam Yu MD LAB BLOOD ORDERABL ES Final Result Performing Organization Address City/[facility]/ZIP Co de Phone Number [facility] [address] [place] [phone] * (ABNORMAL) Comprehensive Metabolic Panel (12/20/2024 12:00 AM EDT) Sodium 139 135 - 145 mmol/L [facility] Potassium 3.6 3.3 - 5.1 mmol/L [facility] Chloride 110(H) 96 - 108 mmol/L [facility] Carbon Dioxide 22 22 - 29 mmol/L [facility] Anion Gap 11(L) 12 - 20 [facility] Urea Nitrogen (BUN) 13 9 - 16 mg/dL [facility] Creatinine, Serum 0.57 0.5 - 1.4 mg/dL [facility] Estimated Glomerular Filt Rate >60 [facility] Comment:Chronic Kidney Disea se: Estimated GFR < 60 mL/min/1.03v2Bsosnj Kidney Disease: Estimated GFR < 15 mL/min/1.73m2 Glucose 95 60 - 115 mg/dL [facility] Calcium 8.9 8.4 - 10.2 mg/dL [facility] Bilirubin, Total 0.3 0.0 - 1.0 mg/dL [facility] Aspartate Amino Transferase 28 5 - 31 U/L [facility] Alanine Aminotransferase 19 0 - 31 U/L [facility] Total Protein 6.9 6.5 - 8.0 g/dL [facility] Albumin Level 4.3 3.5 - 5.0 g/dL [facility] Alkaline Phosphatase 57 39 - 117 U/L [facility] Blood Venous blood specimen / Unknown 12/20/2024 12/20/2024 us Liam Yu MD LAB BLOOD ORDERABL ES Final Result [facility] [address] [place] [phone] * HIV-1/2 Antigen and Antibodies, Fourth Generation, with Reflexes (04/03/2024 11:18 AM EDT) HIV AB/AG Nonreactive Nonreactive [facility] Comment:HIV-1 p24 Ag and/or HIV-1/HIV-2 Ab not detected.A test result that is nonreactive does not exclude thepossibility of exposure to or infection with HIV-1 and/orHIV-2. Nonreactive results in this assay for individualswith prior exposure to HIV-1 and/or HIV-2 may be due toantigen and antibody levels that are below the limit ofdetection of this assay.The [employer] HIV Ag/Ab Combo assay result andsupplemental assay results should be interpreted inconjunction with the patient's clinical presentation,history and other laboratory results. If the results areinconsistent with clinical evidence, additional testing issuggested to confirm the result. Blood Venous blood specimen / Unknown 04/03/2024 11:18 AM EDT 04/03/2024 2:24 PM EDT Liam Yu MD LAB BLOOD ORDERABL ES Final Result Performing Organization Address [facility] Co de Phone Number [facility] [address] [place] [phone] * Hepatitis C Antibody Reflex (02/16/2023 9:45 AM EDT) Hepatitis C Antibody Nonreactive Nonreactive [facility] Comment:Antibodies to HCV no t detected; does not exclude early acuteHCV infection. 02/16/2023 9:45 AM EDT 02/16/2023 2:23 PM EDT Liam Yu MD LAB BLOOD ORDERABL ES Final Result Performing Organization Address [facility] Co de Phone Number [facility] [address] [place] [phone] * Hemoglobin A1c (02/16/2023 9:45 AM EDT) Hemoglobin A1c 5.1 % [facility] Comment:Hemoglobin A1C Refer ence Range Adults: 4.8 - 6.0 % Non diabetic: < 6.0 % Goal: < 7.0 %Additional Action Suggested: > 8.0 %Note: Hemoglobin A1c results are invalid for patients with abnormal amounts of HbF. Blood transfusions may impact the HbA1c concentration in the patient sample. Estimated Average Glucose 100 mg/dL [facility] Comment:eAG = Estimated ave rage glucose which is %A1C expressed asaverage glucose, using the formula of the [id number] Glucose study (ADAG), Diabetes Care, Vol.31,#8,Feb. 2007 02/16/2023 9:45 AM EDT 02/16/2023 2:23 PM EDT us Liam Yu MD LAB BLOOD ORDERABL ES Final Result Performing Organization Address City/State/[facility] Co de Phone Number [facility] [address] [place] [phone] * BI Mammogram Screening Tomosynthesis Bilateral (01/24/2023 1:25 PM EDT) Anatomical Region Laterality Modality Breast Bilateral Mammography 01/24/2023 1:25 PM EDT Narrative 02/18/2023 5:58 AM EDT [address] [place] [address] Mammography Report Signed Patient: Adeline Madrid MR#: [id number] 2 : 1975 Acct:[id number] Age/Sex: 47 / F ADM Date: 01/24/23 Loc: HO.MAMMO Attending Dr: Liam Yu MD Ordering Physician: Liam Xie MD Res ults: Date of Service: 01/24/23 Follow Up: Procedure(s): MM tomosynthesis screening BI Accession Number(s): [id number] cc: Liam Xie MD EXAMINATION: MM SCREENING [...] in OV> 02/18/23 0555 DD/ 1325 TD/TT: Signal Fitter: Procedure Note Donotuseinterpreter, Image - 02/18/2023 [facility] [address] [place] [address] Mammography Report Signed Patient: Adeline MadridMR#: [id number] 2 : 1975Acct:[id number] Age/Sex: 47 / FADM Date: 01/24/23 Loc: PRECIOUS Attending Dr: Liam Yu MD Ordering Physician: Liam Xie ults: Date of Service: 01/24/23Follow Up: Procedure(s): MM tomosynthesis screening BI Accession Number(s): [id number] cc: Liam Xie MD EXAMINATION: MM SCREENING [...] in OV> 02/18/23 0555 DD/ 1325 TD/TT: Signal Fitter: Liam Yu MD IMG BI PROCEDURES Final Result * THINPREP PAP (02/03/2021 10:29 AM EDT) Clinical Information: None given [facility] COMMENT SEE COMMENT [facility] Comment: EXPLANATORY NOTE: The Pap is a screening test for cervical cancer. It is not a diagnostic test and is subject to false negative and false positive results. It is most reliable when a satisfactory sample, regularly obtained, is submitted with relevant clinical findings and history, and when the Pap result is evaluated along with historic and current clinical information. Client Account Specialist : SEE COMMENT [facility] Comment: BK,CT(ASCP) CT screening location: [address] Infection Trichomonas vaginalis identified. [facility] Interpretation/R esult: Negative for intraepithelial lesion or malignancy. [facility] LMP: 01/18/2021 [facility] Prev. BX: NONE GIVEN [facility] Prev. PAP: NONE GIVEN [facility] Review Client Account Specialist : SEE COMMENT [facility] Comment: SXA, CT(ASCP) CT screening location: [address] [address] SOURCE: None given [facility] Statement Of Adequacy: SEE COMMENT [facility] Comment: Satisfactory for evaluation. Endocervical/transformation zone component absent. 02/03/2021 10:2 9 AM EDT Eunice Sahu CNM LAB PATHOLOGY ORDERABLES Final Result [facility] [address] * HPV mRNA E6/E7 (02/03/2021 10:29 AM EDT) HPV nRNA E6/E7 Not Detected Not Detected [facility] Comment: Methodology: Winding Inspector And Tester-Mediated Amplification This assay detects E6/E7 viral messenger RNA (mRNA) from 14 high-risk HPV types (16,18,31,33,35,39,45,51,52,56,58,59,66,68). The analytical performance characteristics of this assay have been determined by [facility]. The modifications have not been cleared or approved by the FDA. This assay has been validated pursuant to the CLIA regulations and is used for clinical purposes. For additional information, please refer to http://education.[employer]/faq/NZG499h7 (This link if provided for information/ educational purposes only.) 02/03/2021 10:2 9 AM EDT us Eunice Sahu [facility] LAB BLOOD ORDERABLES Yessy martinez Result [facility] [address] from Last 3 Months or Most Recently Relevant to Health Maintenance Insurance Care Teams Melter Supervisor [employer] Relationship Specialty Start Date End Date Liam Xie MD [address] [place] [phone] PCP - General Internal Medicine 11/26/20
--- OUTSIDE RECORDS SUMMARY | 2025-01-16 12:40 | XMS_ITS | Clinical Summary ---
Author Organization [facility] ity Address [address] [place] [address] Care Team Providers Care Plate Grainer Name Role Phone Liam Xie Primary Care Provide r Social History Tobacco Use Types Packs/Day Years Used Date Smoking Tobacco: Never Assessed Comments Unknown Sex and Gender Information Value Date Recorded Sex Assigned at Not on file Legal Sex Female 5:46 AM EST Gender Identity Not on file Sexual Orientation Not on file Plan of Treatment Health Maintenance Due Date Last Done Comments Breast Cancer Screening 1977 DTaP,Tdap,and Td Vaccines (1 - Tdap) 1996 Hepatitis B Vaccines (1 of 3 - 19+ 3-dose series) 1996 Cervical Cancer Screening: P ap Smear 1998 COVID-19 Vaccine (2023-2 5 season) 2024 Colorectal Cancer Screening: Colonoscopy 04/19/2024 Depression Screening 04/19/2024 HIV Screening 04/19/2024 Hepatitis C Screening 04/19/2024 Social Influencers of Health Screening 04/19/2024 Influenza Vaccine (#1) 2025 HIB Vaccines Aged Out No longer eligi [...] on patient's age to complete this topic MMR Vaccines Aged Out No longer eligi ble based on patient's age to complete this topic Meningococcal ACWY Vaccine Aged Out N o longer eligible based on patient's age to complete this topic Meningococcal B Vaccine Aged Out No l onger eligible based on patient's age to complete this topic Pneumococcal Vaccine: Pediat rics (0 to 5 Years) and At-Risk Patients (6 to 49 Years) Aged Out No longer eligible b ased on patient's age to complete this topic RSV Immunization Patients Un roque 20 months Aged Out No longer eligible b ased on patient's age to complete this topic Varicella Vaccines Aged Out No longer eligible based on patient's age to complete this topic Care Teams Plate Grainer Relationship Specialty Start Date End Date Liam Xie [address] [place] [address] PCP - General 08/27/22
== END 2025-01-16 11:28 | disposition home or self-care (01) ==
LOC: HO.MAMMO 11:27
PROVIDERS: PCP Internal Medicine; Visit Provider Internal Medicine
DX: Z12.31 Encounter for screening mammogram for malignant neoplasm of breast (principal)
CPT/HCPCS: 77063; 77067

== ENCOUNTER → 2025-01-16 11:30 | Outpatient (BNV) | payer MEDICAID, SELFPAY | PROVIDERS: PCP Internal Medicine; Visit Provider Internal Medicine | DX: Z12.31 Encounter for screening mammogram for malignant neoplasm of breast (principal) | CPT/HCPCS: 77063; 77067 ==

== ENCOUNTER 2025-02-19 15:28 | Emergency (ER) | payer MEDICAID, SELFPAY ==
[2025-02-19] VITALS (7 sets, daily range): BP systolic 128–145; BP diastolic 67–79; PULSE 96–114; RESP 18–24; TEMP 36.8–37; O2SAT 67–100; BMI 37.2
--- NOTE | ~2025-02-19 | XR_ITS ---
EXAMINATION: XR CHEST CLINICAL INFORMATION: SOB COMPARISON: February 25, 2021. TECHNIQUE: 2 views of the chest were obtained. FINDINGS: No hyperinflation. No consolidation, pleural effusion or pneumothorax. Cardiomediastinal silhouette size is mildly prominent, unchanged. S-shaped curvature of the upper thoracic spine. Patient's large body habitus/obesity. XR/XR chest 2V IMPRESSION: No acute airspace disease. Consider hypertensive cardiomyopathy in the correct clinical settings. Electronically signed by: Jemal Garcia MD 02/19/2025 03:45 PM EDT
--- NOTE | 2025-02-19 15:31 | ED.GENADULT ---
HPI - General Adult General Chief complaint: Upper Respiratory Symptoms Stated complaint: Asthma-coughing/congested Time Seen by Provider: 02/19/25 17:17 Source: patient Mode of arrival: ambulatory Limitations: no limitations History of Present Illness ED Provider: Dr. Candida Garza HPI narrative: Patient comes to the emergency room complaining of 3 days of coughing, shortness of breath, congestion. Patient states that she has been using her prednisone that had left over from a previous asthma exacerbation and her inhaler without any significant relief. Patient denies fever chills. Denies chest pain. Related Data Home Medications ?Medication ?Instructions ?Recorded ?Confirmed fluticasone propionate 110 2 puff inhalation BID 02/25/21 03/14/24 mcg/actuation HFA aerosol inhaler (Flovent HFA) semaglutide (weight loss) 0.5 0.5 mg subcut QWEEK 03/14/24 03/14/24 mg/0.5 mL subcutaneous pen injector (Wegovy) Previous Rx's ?Medication ?Instructions ?Recorded albuterol sulfate 90 mcg/actuation 2 puff inhalation Q4-6H PRN 11/26/20 aerosol inhaler shortness of breath or wheezing #8.5 grams ipratropium 0.5 mg-albuterol 3 mg 3 ml inhalation Q6H #100 mL 02/26/21 (2.5 mg base)/3 mL nebulization soln nebulizers #1 ea 02/26/21 prednisone 20 mg tablet 20 mg PO DAILY #5 tabs 02/26/21 cyclobenzaprine 10 mg tablet 10 mg PO Q8H #20 tabs 01/03/25 tramadol 50 mg tablet 50 mg PO Q6H PRN pain #20 tabs 01/03/25 albuterol sulfate 90 mcg/actuation 2 puff inhalation Q4-6H PRN 02/19/25 aerosol inhaler (Ventolin HFA) shortness of breath or wheezing #8.5 grams benzonatate 100 mg capsule 100 mg PO TID PRN cough #12 caps 02/19/25 prednisone 50 mg tablet 50 mg PO DAILY #4 tabs 02/19/25 Allergies Allergy/AdvReac Type Severity Reaction Status Date / Time No Known Allergies Allergy Verified 02/19/25 15:34 Review of Systems Review of Systems: Constitutional : No Weight loss, No Fever, No Chills, No Night Sweats, No Fatigue, No Malaise ENT/Mouth : No Hearing loss, No Ear Pain, No Nasal Congestion, No Sinus Pain, No Hoarseness, No sore throat, No Rhinorrhea, No Swallowing Difficulty Eyes: No Eye Pain, No Swelling, No Redness, No Foreign Body, No Discharge, No Vision Changes Cardiovascular : No Chest Pain, No SOB, No Dyspnea on Exertion, No Orthopnea, No Edema, No Palpitations Respiratory : Complaining of cough, wheezing, shortness of breath Gastrointestinal : No Nausea, No Vomiting, No Diarrhea, No Constipation, No abdominal Pain, No Hematochezia, No Melena Genitourinary : no irregular bleeding, No Dysuria, No Urinary Frequency, No Hematuria, No Urinary Incontinence, No Urgency, No Flank Pain, No Urinary Flow Changes, No Hesitancy Musculoskeletal : No joint pain, No Myalgias, No Joint Swelling Skin : No Skin Lesions, No rash Neuro : No Weakness, No Numbness, No Paresthesias, No Loss of Consciousness, No Dizziness, No Headache Psych : No Anxiety/Panic, No Depression, No SI/HI/AH/VH, No Social Issues, Heme/Lymph: No Bruising, No Bleeding,No Lymphadenopathy Endocrine : No Polyuria, No Polydipsia, No Temperature Intolerance PMFSH Past Medical History Medical History Asthma Surgical History H/O shoulder surgery Social History Social History Alcohol intake: current Alcohol intake frequency: holidays/special occasions only Alcohol type: beer Patient Tobacco Use Status: Current everyday Tobacco user Cigarette Packs Per Day: 0.5 Cigarettes Per Day: 10.0 Years Smoked: 20 Second Hand Smoke Exposure: No Advance Directives: Yes Advance Directives on File: Yes Advance Directives Date on File: 02/25/21 Do you have a plan to hurt others: No Plan service: No Current occupational status: employed and unemployed 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 Oriented X3. No acute distress. Eyes: Pupils equal, round and reactive to light. ENT: Pharynx normal. Neck: Normal inspection. Neck supple. No lymph nodes noted. No crepitus CVS: Normal heart rate and rhythm. Pulses normal. Normal S1 and S2 Respiratory: No respiratory distress. Speaking in full sentences, bilateral wheezing, no rales or crackles Abdomen: Soft and nontender. No rigidity. No distention. Skin: Skin warm and dry. Normal skin color. Normal skin turgor. Extremities: No lower extremity edema. No Lacerations. No Rash Neuro: Oriented X 3. No motor deficit. No sensory deficit. Moving all extremities. No slurred speech. CN 2 through 12 grossly intact Psych: calm, cooperative, normal affect Vital Signs: Vital Signs - 24 hr 02/19/25 15:31 02/19/25 16:20 02/19/25 17:45 Temperature 98.3 F 98.6 F Pulse Rate 109 H 96 108 H Respiratory Rate 20 18 24 H Blood Pressure 140/67 H 145/79 H Pulse Oximetry 93 67 L Oxygen Delivery Method Room Air Room Air 02/19/25 17:51 02/19/25 19:38 02/19/25 20:48 Temperature Pulse Rate 110 H 96 114 H Respiratory Rate 24 H 22 H 18 Blood Pressure 128/72 Pulse Oximetry 99 Oxygen Delivery Method Room Air BMI result Body Mass Index 37.2 Course Course Course Narrative: Rapid medical examination performed in triage by Darby Gómez PA-C. Patient is a 49 year old assigned female at presenting to the emergency department with shortness of breath, hx of asthma. Detailed physical exam and review of systems are deferred to the speech clinician. Imaging and swabs ordered. Patient placed back in the waiting room pending room availability and results. Medications Administered Discontinued Medications Generic Name Dose Route Start Last Admin Trade Name Freq PRN Reason Stop Dose Admin Albuterol Sulfate 8 puff 02/19/25 16:14 02/19/25 16:18 Albuterol Sulfate 90 Mcg 8 Gm Inhaler INHALE 02/19/25 16:15 8 puff ONCE ONE Administration Albuterol Sulfate 12 puff 02/19/25 17:49 02/19/25 17:50 Albuterol Sulfate 90 Mcg 8 Gm Inhaler INHALE 02/19/25 17:50 12 puff ONCE ONE Administration Albuterol Sulfate 5 mg/ 7.5 mg 02/19/25 19:34 02/19/25 19:37 Albuterol Sulfate 2.5 mg INHALE 02/19/25 19:35 7.5 mg ONCE ONE Administration Magnesium Sulfate 2 gm in 50 mls @ 150 mls/hr 02/19/25 17:36 02/19/25 18:30 Magnesium Sulfate/H2o IV 02/19/25 17:55 Infused ONCE ONE Infusion Methylprednisolone Sodium Succinate 125 mg 02/19/25 17:36 02/19/25 18:10 Methylprednisolone Sod Succ 125 Mg/2 Ml Vial IVPUSH 02/19/25 17:37 125 mg ONCE ONE Administration Medical Decision Making Medical Decision Making MDM Narrative: On arrival, patient received albuterol puffs. However, patient keeps wheezing. We will proceed with nebulization treatments, IV magnesium and Solu-Medrol. Patient agrees with plan. Patient is a 2nd nebulization treatment. Patient feeling much better, no longer wheezing, oxygen saturation 96% on room air with no oxygen desaturation. Differential Diagnosis Differential Diagnoses: The differential diagnosis associated with the presentation includes (Asthma, viral syndrome) Admission/Observation Consideration of admission/observation: Escalation of care including admission/observation considered (Given patient's ongoing wheezing, observation was considered) Lab Data [facility] Lab Attestation statement: I reviewed the patient's lab results. Labs: Lab Results 02/19/25 Range/Units 15:47 Influenza Type A (PCR) NEGATIVE (Negative) Influenza Type B (PCR) NEGATIVE (Negative) RSV RNA Qual (PCR) NEGATIVE (Negative) SARS-CoV-2 RNA (RT-PCR) NEGATIVE (Negative) Independent Interpretation I performed an independent interpretation of an: Plain X-Ray Radiology Impression Discussion of test interpretation with radiology: I have reviewed the radiologist's reading. Radiologist Impression: No hyperinflation. No consolidation, pleural effusion or pneumothorax. Cardiomediastinal silhouette size is mildly prominent, unchanged. S-shaped curvature of the upper thoracic spine. Patient's large body habitus/obesity. Critical Care Time Critical Care Time Critical Care Time: Yes Total Critical Care Time: 45 Attestation: I have personally provided critical care time. Time includes review of lab data, radiology results, discussion with consultants, and monitoring for potential decompensation. Intervention performed as documented. Discharge Plan Discharge Clinical Impression: Asthma exacerbation, Viral URI Patient Disposition: Home, Self-Care Instructions: Asthma (ED) Additional Instructions: Please follow-up with your primary care physician tomorrow. If you have any worsening or new symptoms, please return to the emergency room or call 911 Prescriptions: New albuterol sulfate [Ventolin HFA] 90 mcg/actuation HFA aerosol inhaler 2 puff inhalation Q4-6H PRN (Reason: shortness of breath or wheezing) Qty: 8.5 1RF benzonatate 100 mg capsule 100 mg PO TID PRN (Reason: cough) Qty: 12 0RF prednisone 50 mg tablet 50 mg PO DAILY Qty: 4 0RF No Action albuterol sulfate 90 mcg/actuation HFA aerosol inhaler 2 puff inhalation Q4-6H PRN (Reason: shortness of breath or wheezing) Qty: 8.5 0RF Flovent HFA 110 mcg/actuation Hfa Aerosol Inhaler 2 puff INHALATION BID prednisone 20 mg tablet 20 mg PO DAILY Qty: 5 0RF ipratropium-albuterol 0.5 mg-3 mg(2.5 mg base)/3 mL Solution For Nebulization 3 ml inhalation Q6H Qty: 100 0RF (DME) nebulizers Misc See Rx Instructions .Route Qty: 1 0RF Rx Instructions: As directed cyclobenzaprine 10 mg tablet 10 mg PO Q8H Qty: 20 0RF tramadol 50 mg tablet 50 mg PO Q6H PRN (Reason: pain) Qty: 20 0RF Wegovy 0.5 mg/0.5 mL pen injector 0.5 mg subcut QWEEK Rx Instructions: administer weeks 5 through 8 of therapy Stand Alone Forms: Work/School Release Print Language: [place]se
[2025-02-19] MEDS: Albuterol Sulfate 90 MCG 8 GM INHALER 8 PUFF INHALE (16:18)
[2025-02-19 16:28] LABS: Resp Syncy Virus RNA Qual PCR NEGATIVE (Negative); SARS COV2 PCR INHOUSE NEGATIVE (Negative)
[2025-02-19] MEDS: Albuterol Sulfate 90 MCG 8 GM INHALER 12 PUFF INHALE (17:50)
[2025-02-19] MEDS: Magnesium Sulfate/H2O 2 GM/50 ML PIGGYBACK IV (18:10)
[2025-02-19] MEDS: Albuterol Sulfate 5 MG, Albuterol Sulfate (0.083%) 2.5 MG 7.5 MG INHALE (19:37)
--- NOTE | 2025-02-19 20:58 | MHC.EDTECH ---
@20:55 The patient did a walking O2 trail with this tech, patient starting SPo2 was 98% at rest on room air, no C/O SOB, light headed or dizziness. The patient walked 1/[address] around the ED, and turned around back to her room SPo2 lowest was 96%, once back at her room at rest the patient returned to 98% with no C/O SOB, light headed or dizziness.
== END 2025-02-19 21:49 | disposition home or self-care (01) ==
PROVIDERS: Physician Assistant Medical; Emergency Provider Emergency Medicine; PCP Internal Medicine
DX: J06.9 Acute upper respiratory infection, unspecified (principal); J45.901 Unspecified asthma with (acute) exacerbation; R05.9 Cough, unspecified; R06.02 Shortness of breath; Z03.818 Encounter for observation for suspected exposure to other biological agents ruled out
CPT/HCPCS: 71046; 87637; 94640; 96365; 96375; 99284; 99291; J2919; J3475

== ENCOUNTER → 2025-02-19 15:32 | Outpatient (BNV) | payer MEDICAID, SELFPAY | PROVIDERS: PCP Internal Medicine; Visit Provider Radiology Diagnostic Radiology | DX: R06.02 Shortness of breath (principal) | CPT/HCPCS: 71046 ==

== ENCOUNTER 2025-02-22 11:13 | Outpatient (REF) | payer MEDICAID, SELFPAY ==
--- OUTSIDE RECORDS SUMMARY | 2025-02-22 14:15 | XMS_ITS | Clinical Summary ---
Author Organization [employer] Address [address] [facility] [address] [place] [address] Care Team Providers Care Bedspread Cutter Name Role Phone Liam Xie MD Primary [...] times daily. 350 g 1 5 Active predniSONE (Deltasone) 20 MG tabletIndicatio ns:Exacerbation of asthma, unspecified asthma severity, unspecified whether persistent 2 tabs po daily for 5 days 10 tablet 5 Active albuterol (2.5 MG/3ML) 0.083% nebulizer solution Take 3 mL (2.5 mg) by nebulization Every 4-6 hours as needed for wheezing or shortness of breath. 75 mL 2 5 02/23/20 Active Hospital, Clinic, or Other Facility Administered Medication Ordered Dose Route Frequency Start Date End Date Status ipratropium-albutero l (Duo-Neb) 0.5-2.5 mg/3 mL nebulizer solution 3 mgIndications:Exacer bation of asthma, unspecified asthma severity, unspecified whether persistent 3 mg NEBULIZATION Once 02/22/2025 02/22/2025 Ended Active Problems Problem Noted Date Diagnosed Date Mild intermittent asthma with acute exacerbation 02/22/2025 Assessment & Plan (02/22/2025 1:28 PM EDT): - Wheezing initially auscultated on exam. Improved s/p DuoNeb treatment in office. -Plan to extend course of prednisone. Continue with albuterol as needed. Respiratory viral panel sent to evaluate for other potential causes of infection. Chronic pain of right knee 01/11/2024 Assessment [...] 15 min a day, low calorie diet [phone] daily, follow up in 3 months Assessment [...] Encounters Date Type Department Care Team Description 02/22/2025 10:15 AM EDT Office Visit [facility] [address] [place] [address] Jennifer Aldana FNP Exacerbation of asthma, unspecified asthma severity, unspecified whether persistent (Primary Dx); Mild intermittent asthma with acute exacerbation 02/22/2025 Travel 02/22/2025 Telephone [facility] [address] [place] [address] Liam Xie MD Nurse Triage 02/19/2025 Orders Only [facility] External Provider, [facility] 01/01/2025 Telephone [facility] [address] [place] [address] Liam Xie MD Nurse Triage 12/20/2024 11:15 AM EDT Office Visit [facility] [address] [place] [address] Liam Xie MD Encounter for screening mammogram for malignant neoplasm of breast (Primary Dx); Primary hypertension; Class 2 severe obesity due to excess calories with serious comorbidity and body mass index (BMI) of 37.0 to 37.9 in adult ([facility]) 12/20/2024 Results Follow-Up [facility] [address] [place] [address] Liam Xie MD CBC auto differential, Comprehensive [...] Sign Reading Time Taken Comments Blood Pressure 128/82 02/22/2025 10:29 AM EDT Pulse 90 02/22/2025 10:29 AM EDT Temperature 37 C (98.6 F) 02/22/2025 10:29 AM EDT Respiratory Rate 22 02/22/2025 10:29 AM EDT Oxygen Saturation 98% 02/22/2025 10:29 AM EDT Inhaled Oxygen Concentration - - Weight 97.1 kg (214 lb) 02/22/2025 10:29 AM EDT Height 157.5 cm (5' 2 ) 02/22/2025 10:29 AM EDT Body Mass Index 39.14 02/22/2025 10:29 AM EDT Plan of Treatment Upcoming Encounters Date Type Department Care Team ([facility] st Contact Info) Description 04/01/2025 1:45 PM EDT Office Visit [facility] [address] [place] [address] Liam Xie MD [address] [place] [address] Health Maintenance Due Date Last Done Comments CT Colonography 1975 Colonoscopy 1975 Colorectal Cancer Screening 1975 FIT DNA/Cologuard 1977 FIT 1975 FOBT 1975 Sigmoidoscopy 1975 Disability Screening 1977 Family Planning (PISQ) 1992 Hepatitis B Vaccines (1 of 3 - 19+ 3-dose series) 1996 Pneumococcal Vaccine: Pediatrics (0 to 5 Years) and At-Risk Patients (6 to 49) Years (1 of 2 - PCV) 1996 Diabetes: Hemoglobin A1C 02/17/2024 02/16/2023 COVID-19 Vaccine (2023-2 5 season) 2024 02/04/2021, 01/14/2021 Depression Screening 10/30/2024 10/31/2023, 08/24/2022 Tobacco Screening 02/07/2025 02/08/2024 SDOH Screening 03/07/2025 03/07/2024 Influenza Vaccine (#1) 2025 Alcohol/Substance Use Screening 05/01/2025 05/01/2024 Cervical Cancer Screening 02/03/2026 HPV/Cotest 02/03/2026 02/03/2021 Pap Smear 02/03/2026 02/03/2021 Mammogram 01/16/2027 01/16/2025, 01/24/2023 Zoster Vaccines (1 of 2) 2027 Lipid [...] Procedure Name Priority Date/Time Associated Diagnosis Comments SARS COV2/INFLUENZA A/B AND RSV RNA QL NAAT Routine 02/19/2025 3:47 PM EDT XR CHEST 2 VIEWS Routine 02/19/2025 3:30 PM EDT BI MAMMOGRAM SCREENING TOMOSYNTHESIS BILATERAL Routine 01/16/2025 11:30 AM EDT Encounter for screening mammogram for malignant neoplasm of breast TSH W/REFLEX TO FT4 Routine 12/20/2024 1 [...] HEMOGLOBIN A1C Routine 02/16/2023 9:45 AM EDT HPV MRNA E6/E7 Routine 02/03/2021 10:29 AM EDT THINPREP PAP Routine 02/03/2021 10:29 AM EDT from Last 3 Months or Most Recently Relevant to Health Maintenance Results * SARS-CoV-2 RNA, Influenza A/B, and RSV RNA, Ql NAAT (02/19/2025 3:47 PM EDT) Influenza A PCR NEGATIVE Negative [facility] Influenza B PCR NEGATIVE Negative [facility] Resp Syncy Virus RNA Qual PCR NEGATIVE Negative [facility] SARS COV2 PCR NEGATIVE Negative [facility] Comment:All test results mus t be correlated with clinical findings.Negative results do not preclude SARS-CoV2, influenza Avirus, influenza B virus and/or RSV infectionand should not be used as the sole basis for treatment orother patient management decisions. Negative results must becombined with clinical observations, patient history, andepidemiological information.This test has not been evaluated for monitoring treatment ofinfection.This test has been authorized by the FDA under an EmergencyUse Authorization (EUA) for use by authorized laboratories.Testing performed on the Mc4 GeneXpert utilizingreal-time RT-PCR.All SARS CoV2 and positive influenza A/B results arereported to [facility]. 02/19/2025 3:47 PM EDT 02/19/2025 3:49 PM EDT us Generic External Data Provider LAB MICROBIOLOGY - GENERAL ORDERABLES Final Result [facility] [address] [place] [phone] * XR Chest 2 Views (02/19/2025 3:30 PM EDT) Anatomical Region Laterality Modality Chest Radiographic Shaneak ging 02/19/2025 3:30 PM EDT Narrative 02/19/2025 3:48 PM EDT [address] [address] XRay Report Signed Patient: Adeline Madrid MR#: [id number] 2 : 1975 Acct:[id number] Age/Sex: 49 / F ADM Date: 02/19/25 Loc: HO.ED Attending Dr: Ordering Physician: Darby Gómez Date of Service: 02/19/25 Procedure(s): XR chest 2V Accession Number(s): [id number] cc: Liam Xie MD; Darby Gómez EXAMINATION: XR CHEST CLINICAL INFORMATION: SOB COMPARISON: February 25, 2021. TECHNIQUE: 2 views of the chest were obtained. FINDINGS: No hyperinflation. No consolidation, pleural effusion or pneumothorax. Cardiomediastinal silhouette size is mildly prominent, unchanged. S-shaped curvature of the upper thoracic spine. Patient's large body habitus/obesity. XR/XR chest 2V IMPRESSION: No acute airspace disease. Consider hypertensive cardiomyopathy in the correct clinical settings. Electronically signed by: Jemal Garcia MD 02/19/2025 03:45 PM EDT Dictated By: Jemal Santiago MD Signed By: <Electronically signed by Jemal Mccarthy MD in OV> 02/19/25 1545 DD/ 1530 TD/TT: 02/19/25 1540 External Relations Manager: Procedure Note Donotuseinterpreter, Image - 02/19/[address] [address] XRay Report Signed Patient: Adeline MadridMR#: [id number] 2 : 1975Acct:[id number] Age/Sex: 49 / FADM Date: 02/19/25 Loc: HO.ED Attending Dr: Ordering Physician: Darby Gómez Date of Service: 02/19/25 Procedure(s): XR chest 2V Accession Number(s): [id number] cc: Liam Xie MD; Darby Gómez EXAMINATION: XR CHEST CLINICAL INFORMATION: SOB COMPARISON: February 25, 2021. TECHNIQUE: 2 views of the chest were obtained. FINDINGS: No hyperinflation. No consolidation, pleural effusion or pneumothorax. Cardiomediastinal silhouette size is mildly prominent, unchanged. S-shaped curvature of the upper thoracic spine. Patient's large body habitus/obesity. XR/XR chest 2V IMPRESSION: No acute airspace disease. Consider hypertensive cardiomyopathy in the correct clinical settings. Electronically signed by: Jemal Garcia MD 02/19/2025 03:45 PM EDT Dictated By: Jemal Santiago MD Signed By: <Electronically signed by Jemal Mccarthy MDin OV> 02/19/25 1545 DD/ 1530 TD/TT: 02/19/25 1540 External Relations Manager: [facility] External Provider IMG XR PROCEDURES Final Result * BI Mammogram Screening Tomosynthesis Bilateral (01/16/2025 11:30 AM EDT) Anatomical Region Laterality Modality Breast Bilateral Mammography 01/16/2025 11:3 0 AM EDT Narrative 01/29/2025 9:55 AM EDT [facility] [address] [place] [address] Mammography Report Signed Patient: Adeline Madrid MR#: [id number] 2 : 1975 Acct:[id number] Age/Sex: 49 / F ADM Date: 01/16/25 Loc: HO.MAMMO Attending Dr: Liam Yu MD Ordering Physician: Liam Xie MD Res ults: 2Benign Findings Date of Service: 01/16/25 Follow Up: 1 Year From Orig inal Mammogram Procedure(s): MM tomosynthesis screening BI Accession Number(s): [id number] cc: Liam Xie MD EXAMINATION: MM SCREENING DIGITAL BREAST TOMOSYNTHESIS, BILATERAL CLINICAL INFORMATION: Screening. Asymptomatic. COMPARISON: Mammography: Comparison is made with available priors TECHNIQUE: Digital breast mammography with tomosynthesis is performed in both the craniocaudal and mediolateral oblique views along with computer-aided detection (CAD). FINDINGS: There are scattered areas of fibroglandular density (ACR BI-RADS breast composition Category b). Right marker clip. There are no significant masses, abnormal calcifications, or other abnormalities. MM/MM tomosynthesis screening BI IMPRESSION: No mammographic evidence of malignancy. ASSESSMENT: BI-RADS BI-RADS 2 - Benign Findings RECOMMENDATION: Routine annual mammography screening. 1 year F/U This examination should not preclude the clinical evaluation of a suspicious palpable abnormality. This patient's information was entered into a reminder system with a target due date for their next mammogram. Electronically signed by: Sofy Huerta DO 01/29/2025 09:52 AM EDT Dictated By: Sofy Huerta DO Signed By: <Electronically signed by Sofy Huerta DO in OV> 01/29/25 0952 DD/ 1130 TD/TT: 01/16/25 1159 External Relations Manager: Procedure Note Donotuseinterpreter, Image - 01/29/2025 [facility] [address] [place] [address] Mammography Report Signed Patient: Adeline MadridMR#: [id number] 2 : 1975Acct:[id number] Age/Sex: 49 / FADM Date: 01/16/25 Loc: HO.MAMMO Attending Dr: Liam Yu MD Ordering Physician: Liam Xie ults: 2Benign Findings Date of Service: 01/16/25Follow Up: 1 Year From Orig inal Mammogram Procedure(s): MM tomosynthesis screening BI Accession Number(s): [id number] cc: Liam Xie MD EXAMINATION: MM SCREENING DIGITAL BREAST TOMOSYNTHESIS, BILATERAL CLINICAL INFORMATION: Screening. Asymptomatic. COMPARISON: Mammography: Comparison is made with available priors TECHNIQUE: Digital breast mammography with tomosynthesis is performed in both the craniocaudal and mediolateral oblique views along with computer-aided detection (CAD). FINDINGS: There are scattered areas of fibroglandular density (ACR BI-RADS breast composition Category b). Right marker clip. There are no significant masses, abnormal calcifications, or other abnormalities. MM/MM tomosynthesis screening BI IMPRESSION: No mammographic evidence of malignancy. ASSESSMENT: BI-RADS BI-RADS 2 - Benign Findings RECOMMENDATION: Routine annual mammography screening. 1 year F/U This examination should not preclude the clinical evaluation of a suspicious palpable abnormality. This patient's information was entered into a reminder system with a target due date for their next mammogram. Electronically signed by: Sofy Huerta DO 01/29/2025 09:52 AM EDT Dictated By: Sofy Huerta DO Signed By: <Electronically signed by Sofy Huerta DO in OV> 01/29/25 0952 DD/ 1130 TD/TT: 01/16/25 1159 External Relations Manager: us Liam Yu MD IMG BI PROCEDURES Final Result * TSH W/Reflex to FT4 (12/20/2024 12:00 AM EDT) TSH reflex Free T4 0.93 0.32 - 4.0 uIU/mL [facility] Blood Venous blood specimen / Unknown 12/20/2024 12/20/2024 Liam Yu MD LAB BLOOD ORDERABL ES Final Result [facility] [address] [place] [phone] * (ABNORMAL) CBC auto differential (12/20/2024 12:00 AM EDT) White Blood Count 5.0 4.8 - 10.8 X10*3/uL [facility] Red Blood Count 4.24 4.20 - 5.50 X10*6/uL [facility] Hemoglobin 12.4 12.0 - 16.0 g/dl [facility] Hematocrit 36.1(L) 37.0 - 47.0 % [facility] Mean Corpuscular Volume 85.1 80.0 - 98.0 fL [facility] Mean Corpuscular Hemoglobin 29.2 27.0 - 33.0 pg [facility] Mean Corpuscular HGB Conc 34.3 31.0 - 35.0 g/dl [facility] Red Cell Distribution Width 14.5 11.0 - 16.0 % [facility] Platelet Count 179 160 - 400 X10*3/uL [facility] Mean Platelet Volume 11.3 9.4 - 12.3 fL [facility] Neutrophils Percent Auto 53.6 45 - 73 % [facility] Imm Gran Pct Auto 0.2 0.0 - 0.4 % [facility] Lymphocytes Percent Auto 37.8 20 - 40 % [facility] Monocytes Percent Auto 8.0 2 - 11 % [facility] Eosinophils Percent Auto 0.0 0 - 4 % [facility] Basophils Percent Auto 0.4 0 - 2 % [facility] NRBC Pct Auto 0.0 0.0 - 0.2 /100WBC [facility] Neutrophils Absolute Auto 2.7 2.0 - 8.3 x10*3/uL [facility] Imm Gran Abs Auto 0.01 0.00 - 0.03 X10*3/uL [facility] Lymphocytes Absolute Auto 1.9 1.2 - 4.9 X10*3/uL [facility] Monocytes Absolute Auto 0.4 0.1 - 1.2 X10*3/uL [facility] Eosinophils Absolute Auto 0.0 0.0 - 0.4 X10*3/uL [facility] Basophils Absolute Auto 0.0 0.0 - 0.2 X10*3/uL [facility] NRBC Abs Auto 0.000 0.0 - 0.012 X10*3/uL [facility] Blood Venous blood specimen / Unknown 12/20/2024 12/20/2024 Liam Yu MD LAB BLOOD ORDERABL ES Final Result Performing Organization Address [facility] Co de Phone Number [facility] [address] [place] [phone] * (ABNORMAL) Lipid Panel, Standard (12/20/2024 12:00 AM EDT) Triglycerides 289(H) <150 mg/dL [facility] Comment:Desirable Triglyceri de: less than 150 mg/dLBorderline High Triglyceride 150-199 mg/dLHigh Triglyceride: 200-499 mg/dLVery High Triglyceride: greater than or equal to 5OO mg/dL Cholesterol 203(H) <200 mg/dL [facility] Comment:Desirable Cholestero l: less than 200 mg/dLBorderline High Cholesterol: 200-239 mg/dLHigh Cholesterol: greater than 239 mg/dL LDL Cholesterol Calculated 105(H) <100 mg/dL [facility] Comment:Desirable LDL: less than 100 mg/dLNear Optimal/Above Optimal LDL: 110- 129 mg/dLBorderline High LDL: 130-159 mg/dLHigh LDL: 160-189 mg/dLVery High LDL: greater than or equal to 190 mg/dL HDL Cholesterol 41 >40 mg/dL [facility] Comment:Desirable HDL: great er than 40 mg/dL Note: This HDL assay may give artificially low results in patients with liver disease. Blood Venous blood specimen / Unknown 12/20/2024 12/20/2024 Liam Yu MD LAB BLOOD ORDERABL ES Final Result Performing Organization Address [facility]/ZIP Co de Phone Number [facility] [address] [place] [phone] * (ABNORMAL) Comprehensive Metabolic Panel (12/20/2024 12:00 AM EDT) Sodium 139 135 - 145 mmol/L [facility] Potassium 3.6 3.3 - 5.1 mmol/L [facility] Chloride 110(H) 96 - 108 mmol/L [facility] Carbon Dioxide 22 22 - 29 mmol/L [facility] Anion Gap 11(L) 12 - 20 [facility] Urea Nitrogen (BUN) 13 9 - 16 mg/dL [facility] Creatinine, Serum 0.57 0.5 - 1.4 mg/dL [facility] Estimated Glomerular Filt Rate >60 [facility] Comment:Chronic Kidney Disea se: Estimated GFR < 60 mL/min/[id number] Kidney Disease: Estimated GFR < 15 mL/min/1.73m2 Glucose 95 60 - 115 mg/dL [facility] Calcium 8.9 8.4 - 10.2 mg/dL [facility] Bilirubin, Total 0.3 0.0 - 1.0 mg/dL [facility] Aspartate Amino Transferase 28 5 - 31 U/L [facility] Alanine Aminotransferase 19 0 - 31 U/L [facility] Total Protein 6.9 6.5 - 8.0 g/dL [facility] Albumin Level 4.3 3.5 - 5.0 g/dL [facility] Alkaline Phosphatase 57 39 - 117 U/L [facility] Blood Venous blood specimen / Unknown 12/20/2024 12/20/2024 us Liam Yu MD LAB BLOOD ORDERABL ES Final Result [facility] [address] [place] [phone] * HIV-1/2 Antigen and Antibodies, Fourth Generation, with Reflexes (04/03/2024 11:18 AM EDT) HIV AB/AG Nonreactive Nonreactive [facility] Comment:HIV-1 p24 Ag and/or HIV-1/HIV-2 Ab not detected.A test result that is nonreactive does not exclude thepossibility of exposure to or infection with HIV-1 and/orHIV-2. Nonreactive results in this assay for individualswith prior exposure to HIV-1 and/or HIV-2 may be due toantigen and antibody levels that are below the limit ofdetection of this assay.The [employer] HIV Ag/Ab Combo assay result andsupplemental assay results should be interpreted inconjunction with the patient's clinical presentation,history and other laboratory results. If the results areinconsistent with clinical evidence, additional testing issuggested to confirm the result. Blood Venous blood specimen / Unknown 04/03/2024 11:18 AM EDT 04/03/2024 2:24 PM EDT Liam Yu MD LAB BLOOD ORDERABL ES Final Result Performing Organization Address [facility]/ZIP Co de Phone Number [facility] [address] [place] [phone] * Hepatitis C Antibody Reflex (02/16/2023 9:45 AM EDT) Hepatitis C Antibody Nonreactive Nonreactive [facility] Comment:Antibodies to HCV no t detected; does not exclude early acuteHCV infection. 02/16/2023 9:45 AM EDT 02/16/2023 2:23 PM EDT Liam Yu MD LAB BLOOD ORDERABL ES Final Result Performing Organization Address [facility]/ZIP Co de Phone Number [facility] [address] [place] [phone] * Hemoglobin A1c (02/16/2023 9:45 AM EDT) Hemoglobin A1c 5.1 % [facility] Comment:Hemoglobin A1C Refer ence Range Adults: 4.8 - 6.0 % Non diabetic: < 6.0 % Goal: < 7.0 %Additional Action Suggested: > 8.0 %Note: Hemoglobin A1c results are invalid for patients with abnormal amounts of HbF. Blood transfusions may impact the HbA1c concentration in the patient sample. Estimated Average Glucose 100 mg/dL [facility] Comment:eAG = Estimated ave rage glucose which is %A1C expressed asaverage glucose, using the formula of the [id number] Glucose study (ADAG), Diabetes Care, Vol.31,#8,2007 02/16/2023 9:45 AM EDT 02/16/2023 2:23 PM EDT us Liam Yu MD LAB BLOOD ORDERABL ES Final Result [facility] [address] [place] [phone] * THINPREP PAP (02/03/2021 10:29 AM EDT) [...] along with historic and current clinical information. Hoop Flaring Machine Operator : SEE COMMENT [facility] Comment: BK,CT(ASCP) CT screening location: [address] Infection Trichomonas vaginalis identified. [facility] Interpretation/R esult: Negative for intraepithelial lesion or malignancy. [facility] LMP: 01/18/2021 [facility] Prev. BX: NONE GIVEN [facility] Prev. PAP: NONE GIVEN [facility] Review Hoop Flaring Machine Operator : SEE COMMENT [facility] Comment: SXA, CT(ASCP) CT screening location: [address] [address] SOURCE: None given [facility] Statement Of Adequacy: SEE COMMENT [facility] Comment: Satisfactory for evaluation. Endocervical/transformation zone component absent. 02/03/2021 10:2 9 AM EDT Eunice Sahu [facility] LAB PATHOLOGY ORDERABLES Final Result Performing Organization Address [facility] Co de Phone Number [facility] [address] * HPV mRNA E6/E7 (02/03/2021 10:29 AM EDT) HPV nRNA E6/E7 Not Detected Not Detected [facility] Comment: Methodology: Posting Machine Operator-Mediated Amplification This assay detects E6/E7 viral messenger RNA (mRNA) from 14 high-risk HPV types (16,18,31,33,35,39,45,51,52,56,58,59,66,68). The analytical performance characteristics of this assay have been determined by [employer]. The modifications have not been cleared or approved by the FDA. This assay has been validated pursuant to the CLIA regulations and is used for clinical purposes. For additional information, please refer to http://education.POI/faq/PXE206k0 (This link if provided for information/ educational purposes only.) 02/03/2021 10:2 9 AM EDT Eunice Sahu [facility] LAB BLOOD ORDERABLES Yessy l Result Performing Organization Address [facility] de Phone Number [facility] [address] from Last 3 Months or Most Recently Relevant to Health Maintenance Insurance C3 Care Teams Bedspread Cutter Relationship Specialty Start Date End Date Liam Xie MD [address] [place] [phone] PCP - General Internal Medicine 11/26/20
--- OUTSIDE RECORDS SUMMARY | 2025-02-22 14:15 | XMS_ITS | Clinical Summary ---
Author Organization [facility] Address [address] [place] [address] Care Team Providers Care Loom Setter Name Role Phone Liam Xie Primary Care [...] season) 2024 Colorectal Cancer Screening: Colonoscopy 04/19/2024 HIV Screening 04/19/2024 Hepatitis C Screening 04/19/2024 Social Influencers of Health Screening 04/19/2024 Depression Screening 07/11/2024 Influenza Vaccine (#1) 2025 HIB Vaccines Aged [...] age to complete this topic Care Teams Loom Setter Relationship Specialty Start Date End Date Liam Xie [address] [place] [address] PCP - General 08/27/22
[2025-02-22 15:25] LABS: Chlamydia pneumoniae PCR Not Detected (Not Detect.); Coronavirus 229E PCR Not Detected (Not Detect.); Coronavirus HKU1 PCR Not Detected (Not Detect.); Coronavirus NL63 PCR Not Detected (Not Detect.); Coronavirus OC43 PCR Not Detected (Not Detect.); RSV PCR Not Detected (Not Detect.); Rhino/Enterovirus PCR Detected (Not Detect.)
[2025-02-22 15:26] LABS: Influenza A H1 PCR Not Detected (Not Detect.); Influenza A H1-2009 PCR Not Detected (Not Detect.); Influenza A H3 PCR Not Detected (Not Detect.); SARS-CoV-2 PCR Not Detected (Not Detect.)
== END 2025-02-22 11:14 | disposition home or self-care (01) ==
LOC: HO.HHCLNP 11:13
PROVIDERS: Visit Provider Registered Nurse
DX: J45.901 Unspecified asthma with (acute) exacerbation (principal)
CPT/HCPCS: 87633